=== PATIENT | male | born 1945 | race Caucasian/White ===

== ENCOUNTER 2016-07-11 20:06 | Inpatient (IN) | payer MEDICARE, OTHER ==
--- NOTE | ~2016-07-11 | CN ---
Consultation Report [facility] [address] [place]. [address] NAME: NIRU LUNDBERG JR : 41 STATUS : ADM IN [facility]#: [id number] AGE: 71 ADM/REG DATE : 07/11/16 MR#: [id number] REPORT SERV DATE: 07/17/16 DICTATED BY: VIVIENNE CAMARA DATE: 07/17/16 REPORT STATUS : Draft TRANSCRIBED BY: MODL DATE: 07/17/16 INFECTIOUS DISEASE CONSULT DATE OF CONSULTATION: 07/17/2016 REASON FOR CONSULTATION: Septic left total knee arthroplasty. HISTORY OF PRESENT ILLNESS: This is a 71-year-old man with a past medical history notable for alcoholic cirrhosis, congestive heart failure, coronary artery disease, chronic kidney disease, and COPD. He also underwent bilateral total knee arthroplasties in 2009. The patient tells me that the left knee has hurt ever since then. However, he is a poor historian, otherwise regarding recent development. The chart states that the daughter related a history his admission on 07/11/2016 that he had developed 4-day history of progressive redness, warmth, pain, and swelling of the left lower leg both above and below and including the left knee. He was seen at another hospital and started on clindamycin, but continued to have worsening symptoms and therefore was admitted to [facility] on 07/11/2016. He had a white blood cell count of 9.1 and no fever. An x-ray of the left knee just showed soft tissue swelling. The patient was seen by Dr. Gatica. Arthrocentesis was attempted without success. He was placed on vancomycin, but really did not improve much and underwent a CT-guided aspiration of the joint on 07/15/2016, which showed a white blood cell count of 6980, 77% neutrophils. The patient was therefore taken to the operating room yesterday. I do not have the dictated operative note yet, but his hardware was removed and he had an antibiotic spacer placed. Cultures from both the arthrocentesis and from yesterday's procedure are negative to date. The Gram stains just showed white blood cells, but no organisms. The patient says he actually feels better today. He denies any recent skin or soft tissue infections or other infections such as dental infection or urinary tract infection. PAST MEDICAL HISTORY: As outlined above. With his cirrhosis, he has chronic thrombocytopenia and anemia. He also has a history of depression, anxiety, and coronary artery bypass grafting. ALLERGIES: PENICILLIN, CAUSED AN UNKNOWN REACTION WHEN HE WAS A CHILD. PRESENT MEDICATIONS: In addition to vancomycin include Coreg, Colace, Cardura, Cymbalta, iron, lactulose, multivitamins, OxyContin, Protonix, Demadex, Coumadin. SOCIAL HISTORY: The patient lives alone. He has a pet poodle, occasional scratches, but nothing that got infected appearing. Quit smoking years ago. Quit drinking about a year ago. FAMILY HISTORY: Notable for coronary artery disease and hypertension. REVIEW OF SYSTEMS: Consultation Report [facility] [address] [place]. [address] NAME: NIRU LUNDBERG JR : 41 STATUS : ADM IN [facility]#: [id number] AGE: 71 ADM/REG DATE : 07/11/16 MR#: [id number] REPORT SERV DATE: 07/17/16 DICTATED BY: VIVIENNE CAMARA DATE: 07/17/16 REPORT STATUS : Draft TRANSCRIBED BY: NITISH DATE: 07/17/16 As outlined above. In addition, no chest pain, shortness of breath, nausea, vomiting, diarrhea, genitourinary symptoms. PHYSICAL EXAMINATION: VITAL SIGNS: The patient weighs 109 kg. He is afebrile. Blood pressure 122/56, pulse 92, respiratory rate 14. GENERAL: He is alert, no acute distress. HEAD AND NECK: Shows clear oral cavity. No thrush. LUNGS: Clear to auscultation anteriorly and laterally. CARDIAC: Regular rate and rhythm without murmur, gallop, or rub. ABDOMEN: Slightly distended, very soft, and nontender. No masses appreciated. EXTREMITIES: The left lower extremity is in a postoperative immobilizer. Right lower extremity has a compression stocking. He has a peripheral IV in his arm without phlebitis. LABORATORY STUDIES: White blood cell count 7.0, hemoglobin 8.4, platelets 112, creatinine 1.74, which appears to be about his baseline. Admission liver function tests showed a bilirubin of 3.6, which is relatively unchanged from previous values in the [facility] system. Other liver function tests normal. Admission blood cultures negative. Urine culture negative. New fluid cultures as noted above. Left lower extremity ultrasound was negative. IMPRESSION: Septic left total knee arthroplasty, status post hardware removal. Cultures are negative to date. No real historical clues as to an etiology. This patient also has cirrhosis and chronic kidney disease. PLAN: 1. We will continue empiric vancomycin with dosing per pharmacy. 2. I will place a PICC line tomorrow in anticipation of six weeks of IV antibiotics in a assisted unit. OFELIA/MODShayne Vivienne Camara M.D. / [id number] CC: MD Lisa Baum M.D.
--- NOTE | ~2016-07-11 | DS ---
Discharge Summary [facility] [address] [place]. [address] NAME: NIRU LUNDBERG JR : 41 STATUS : DIS IN PAT#: [id number] AGE: 71 ADM/REG DATE : 07/11/16 MR#: [id number] REPORT SERV DATE: 07/20/16 DICTATED BY: NATY HEBERT DATE: 07/20/16 REPORT STATUS : Draft TRANSCRIBED BY: MODL DATE: 07/20/16 ADMISSION DATE: 07/11/2016 DISCHARGE DATE: 07/20/2016 AD TERMINAL MAKEUP OPERATOR: Brad Henley M.D. METAL EXPEDITER: Robby Barrios M.D. CONSULTING PHYSICIAN: Dr. Gatica for Orthopedics and Dr. Camara for ID. FINAL DIAGNOSES: 1. Left knee septic arthritis, status post surgery. 2. Urinary retention, improved. 3. Status post acute kidney injury on chronic kidney disease 3. 4. Coronary artery disease with history of coronary artery bypass grafting. 5. Atrial fibrillation. 6. Obstructive sleep apnea. 7. Cirrhosis. 8. Anemia, status post 1 unit packed RBC. 9. Chronic thrombocytopenia. 10.Anxiety and depression. 11.Obesity. DIAGNOSTIC EXAMS: Chest x-ray, showing left PICC tip is superimposed over the superior vena cava. Previous right PICC has been removed. No acute abnormality. HOSPITAL COURSE: Please refer to the H and P done by Dr. Mckay dated on 07/11/2016 and the interim discharge summary done by Dr. Joseph dated on 07/17/2016. Since I took care of this patient, the patient is status post left total knee resection and cement block placement for his septic arthritis. Unfortunately, we were not able to isolate any organisms from him. The patient was continued on vancomycin and seems to be tolerating that. We got a rehab facility, [place], and they are willing to take the patient today. The patient will now be discharged there with the above diagnosis. The patient will be on the following medications Coreg 25 mg in the morning and 12.5 mg at bedtime, Cardura 4 mg at night, Cymbalta 30 mg every morning, Colace 100 mg twice a day, iron 300 mg twice a day, lactulose 30 mL twice a day, multivitamin once a day, Protonix 40 mg at bedtime, Flomax 0.4 mg a day, Coumadin per sliding scale. He will be off the Eliquis, vancomycin 1 g IV q.12 hours until 08/25/2016, [place] 7.5/325 one tab p.o. q.6 hours p.r.n. pain. The patient will follow up with the rehab doctor, then follow up with his PCP, Dr. Eriberto Hester, after rehab discharge. Follow up with Ortho per their schedule. The patient will be needing CBC, complete metabolic panel, vancomycin trough weekly and the results should be faxed to Dr. Camara. This has been explained to the patient. I explained also to the daughter, and they understood and agreed with the plan. DICTATED BY: Naty Hebert M.D. Discharge Summary [address] [address] NAME: NIRU LUNDBERG JR : 41 STATUS : DIS IN PAT#: [id number] AGE: 71 ADM/REG DATE : 07/11/16 MR#: [id number] REPORT SERV DATE: 07/20/16 DICTATED BY: NATY HEBERT DATE: 07/20/16 REPORT STATUS : Draft TRANSCRIBED BY: NITISH DATE: 07/20/16 TOMMY/NITISH Naty Hebert M.D. / [id number] CC: Kwaku Trimble M.D.
--- NOTE | ~2016-07-11 | OP ---
Record Of Operation [facility] [address] [place]. [address] NAME: NIRU LUNDBERG JR : 41 STATUS : ADM IN [facility]#: [id number] AGE: 71 ADM/REG DATE : 07/11/16 MR#: [id number] REPORT SERV DATE: 07/17/16 DICTATED BY: FENG ODELL DATE: 07/17/16 REPORT STATUS : Draft TRANSCRIBED BY: MODL DATE: 07/17/16 DATE OF PROCEDURE: 07/16/2016 PREOPERATIVE DIAGNOSIS: Septic left total knee. POSTOPERATIVE DIAGNOSIS: Septic left total knee. PROCEDURE: Left total knee resection, cement block placement. SURGEON: Lisa Odell M.D. SHERIFF'S OFFICER: See chart. DESCRIPTION OF PROCEDURE: The patient was taken to the operating room and placed supine on the table in normal fashion without any incident. General anesthetic was induced per the anesthesiologist. The patient was carefully positioned, padded, prepped, and draped in normal sterile fashion. Left lower extremity was elevated. Tourniquet inflated to 350. Sharp dissection was made through the old incision with electrocautery through the fat. Sharp quad approach was carried out. Purulent appearing fluid was sent for cultures and gram stain. There was abundant hypertrophic synovium debrided with electrocautery and rongeur. The femoral tibial components were removed with flexible osteotome. Cement was meticulously debrided after taking out the polyethylene insert. The patella was removed with an oscillating saw and meticulously debrided with curette. All surfaces were copiously irrigated with pulsatile lavage. We then completely re-draped and re-gowned with a new setup, irrigated with three more liters of pulsatile lavage. The cement block was then fashioned with premixed antibiotic cement with vancomycin added. Placed in a doughy phase, was held under traction. The knee was closed in a layered fashion . The wound was dressed sterilely. The patient was awakened and taken to postanesthesia care without incident. COMPLICATIONS: None. SPECIMENS: Removed components and cultures. ESTIMATED BLOOD LOSS: About 10 mL. WTB/MODL Lisa Odell M.D. / [id number] CC: Record Of Operation [place] [address] [place]. [address] NAME: TOÑO GUILLENNIRU PADILLAWIN : 41 STATUS : ADM IN [facility]#: [id number] AGE: 71 ADM/REG DATE : 07/11/16 MR#: [id number] REPORT SERV DATE: 07/17/16 DICTATED BY: FENG ODELL DATE: 07/17/16 REPORT STATUS : Draft TRANSCRIBED BY: MODL DATE: 07/17/16 Kiersten Joseph MD
--- NOTE | ~2016-07-11 | HP ---
History And Physical [place] [address] [facility] [place]. [address] NAME: NIRU LUNDBERG JR : 43 STATUS : ADM IN [facility]#: [id number] AGE: 71 ADM/REG DATE : 07/11/16 MR#: [id number] REPORT SERV DATE: 07/12/16 DICTATED BY: FENG ODELL DATE: 07/12/16 REPORT STATUS : Draft TRANSCRIBED BY: MODShayne DATE: 07/12/16 DATE OF ADMISSION: 07/11/2016 CHIEF COMPLAINT: Left knee pain. HISTORY: 71-year-old male, 10 years status post bilateral total knee arthroplasty roughly, who has had some pain since a quadriceps tendon rupture over a decade ago. He has had increased pain and swelling over the last week, no known fever, has had some decreased range of motion. He was admitted to the ER last night and placed on IV antibiotics. He and his family says the redness is already improved dramatically. He denies any other infectious symptoms elsewhere. ALLERGIES: PENICILLIN. MEDICATIONS: See chart. PAST MEDICAL HISTORY: Cataracts, hay fever, coronary artery disease, hypertension, CHF, myocardial infarction, history of DVT, GERD, renal calculi, melanoma. PAST SURGICAL HISTORY: CABG x4 in 2000, tonsillectomy and COA in 2005, bilateral knee replaced as noted. SOCIAL HISTORY: Quit tobacco. No alcohol or illicit drug use. FAMILY HISTORY: No anesthetic complications. REVIEW OF SYSTEMS: As above. PHYSICAL EXAMINATION: GENERAL: He is alert and oriented x3, in no apparent distress. HEENT: Atraumatic, normocephalic. CHEST: Symmetric. EXTREMITIES: Both upper extremities right lower extremity without acute trauma. Left lower extremity, he has some mild erythema over the anterior aspect of the knee only. His range of motion is approximately a 10 to about 35 degrees with some pain. Moderate effusion. Skin is intact. Compartment supple. 2+ pulses. NEURO: Sensorimotor without deficit. ASSESSMENT: Left anterior knee cellulitis versus a prepatellar bursitis, apparently improving on antibiotics with questionable deep infection. PLAN: I attempted to aspirate the knee from superolateral portal and got no fluid at all. At this point, with no aspirate and reports of an ultrasound to rule out a DVT that showed minimal fluid in the joint, I am hopeful this is not a deep infection. I do not feel any further imaging is warranted. I would rather see how he responds to a couple of days of IV History And Physical [address] [place] [place]. [address] NAME: NIRU LUNDBERG JR : 43 STATUS : ADM IN PAT#: [id number] AGE: 71 ADM/REG DATE : 07/11/16 MR#: [id number] REPORT SERV DATE: 07/12/16 DICTATED BY: FENG ODELL DATE: 07/12/16 REPORT STATUS : Draft TRANSCRIBED BY: MODL DATE: 07/12/16 antibiotics and may have to do a surgical exploration and/or ultrasound-guided aspirate if he is not improving. WTB/MODL Lisa Odell M.D. / [id number] CC: Kiersten Joseph MD
--- NOTE | ~2016-07-11 | HP ---
History And Physical [place] [id number] [facility] [place]. [address] NAME: NIRU LUNDBERG JR : 41 STATUS : ADM IN [facility]#: [id number] AGE: 71 ADM/REG DATE : 07/11/16 MR#: [id number] REPORT SERV DATE: 07/11/16 DICTATED BY: YENNY HEIN DATE: 07/11/16 REPORT STATUS : Draft TRANSCRIBED BY: MODShayne DATE: 07/11/16 DATE OF ADMISSION: 07/11/2016 POINT OF ENTRY: [facility] Emergency Department. PRIMARY ANTIQUE REPAIRER: Brad Henley M.D. PRIMARY LAND SURVEY TECHNICIAN: Robby Barrios M.D. CHIEF COMPLAINT: Left leg redness and swelling. HISTORY OF PRESENT ILLNESS: Mr. Lundberg is a 71-year-old gentleman with a history of alcoholic cirrhosis, atrial fibrillation on anticoagulation, chronic systolic congestive heart failure as well as coronary artery disease who presents to the emergency department today with a four-day history of left lower extremity redness, swelling, pain as well as warmth. Daughter states that beginning Thursday morning when he awoke, he first noted some redness, warmth, pain, and swelling of his left lower extremity primarily around his distal thigh and proximal calf region as well as around his left knee. They went to [facility] on Thursday where reportedly a lower extremity Doppler was negative for DVT and was placed on oral clindamycin. The patient states compliance with oral clindamycin, however, they feel as if the cellulitic changes in the left lower extremity have worsened somewhat despite being on clindamycin. They do endorse some swelling about the knee joint, however, they state that the left knee is chronically a little swollen status post left total knee by Dr. Gatica about 10 years ago. They deny any fevers, night sweats, chills, chest pain, shortness of breath, palpitations, abdominal pain, nausea, vomiting, diarrhea, constipation, dysuria, lower extremity edema, melena, hematochezia, or hemoptysis. REVIEW OF SYSTEMS: Comprehensive review of system otherwise negative unless listed in history of present illness. Initial evaluation in the emergency department was notable for stable vital signs. Labs notable for a white count that was within normal limits. INR is elevated at 2.3. CRP is also elevated at 59.3. The ER physician consulted with Dr. Gatica regarding workup for possible septic knee arthritis, however, Dr. Gatica recommended just antibiotics overnight, and he is to see patient in the morning and decide on diagnostic arthrocentesis at that time. PREVIOUS MEDICAL HISTORY: 1. Chronic systolic congestive heart failure. 2. Coronary artery disease with coronary artery bypass grafting. 3. Alcoholic cirrhosis. History And Physical [address] [address] NAME: NIRU LUNDBERG JR : 41 STATUS : ADM IN PAT#: [id number] AGE: 71 ADM/REG DATE : 07/11/16 MR#: [id number] REPORT SERV DATE: 07/11/16 DICTATED BY: YENNY HEIN DATE: 07/11/16 REPORT STATUS : Draft TRANSCRIBED BY: NITISH DATE: 07/11/16 4. Pancytopenia. 5. Atrial fibrillation, on Eliquis. 6. Chronic kidney stage 3, baseline creatinine approximately 1.4 to 1.6. 7. History of GI bleed. 8. Obstructive sleep apnea, on CPAP therapy. 9. COPD, not on home oxygen. 10.Depression. 11.Anxiety. 12.Chronic pain. SURGICAL HISTORY: 1. Bilateral total knee replacements. 2. Coronary artery bypass grafting. 3. Tonsillectomy. ALLERGIES: TO PENICILLIN. HOME MEDICATIONS: 1. Tylenol 1300 mg b.i.d. 2. Albuterol two puff inhalation p.r.n. 3. Eliquis 5 mg b.i.d. 4. Carvedilol 12.5 mg at bedtime. 5. Carvedilol 25 mg daily. 6. Clindamycin 450 mg t.i.d. This was started from [facility]. 7. Cardura 4 mg q.p.m. 8. Cymbalta 30 mg daily. 9. Lisinopril 2.5 mg daily. 10.Nitroglycerin 0.4 mg sublingual p.r.n. 11.Percocet 10/325 one tab q.6 hours p.r.n. 12.Protonix 40 mg at bedtime. 13.MiraLAX 17 g daily. 14.Demadex 20 mg daily. 15.Ultram 100 mg at bedtime. 16.Ultram 100 mg q.6 hours p.r.n. 17.Lipitor one tab at bedtime dose unknown. SOCIAL HISTORY: He is a former smoker, quit about 30 years ago. Former alcoholic who quit drinking about a year ago. Denies illicits. FAMILY HISTORY: Mother with coronary disease and hypertension. Father with coronary disease, hypertension. Siblings with history of VTE. LABS AND IMAGIN. White count is 9.1, hemoglobin 9.2, hematocrit is 26.3, platelet count is 93, INR is 2.3. 2. Sodium is 136, potassium 4.6, chloride 104, carbon dioxide 26, BUN 37, creatinine 1.87, glucose is 99, calcium is 8.0, protein 7.0, albumin 3.8, bilirubin is 3.6, ALT is 12, History And Physical [address] [address] NAME: NIRU LUNDBERG JR : 41 STATUS : ADM IN [facility]#: [id number] AGE: 71 ADM/REG DATE : 07/11/16 MR#: [id number] REPORT SERV DATE: 07/11/16 DICTATED BY: YENNY HEIN DATE: 07/11/16 REPORT STATUS : Draft TRANSCRIBED BY: MODL DATE: 07/11/16 AST 20, and alkaline phosphatase is 65. 3. CRP 69.3. 4. Ammonia level 32. 5. Left knee plain film shows no appreciable effusions as per my review. Formal Radiology read will need to be followed up. PHYSICAL EXAMINATION: VITAL SIGNS: Temperature is 98.8 degrees Fahrenheit, pulse is 67, respirations 18, saturating 93% on room air. Blood pressure 124/59. GENERAL: The patient is awake, alert, in no acute distress resting comfortably. He is a well-developed, well-nourished, elderly male. HEENT: Atraumatic and normocephalic. Moist mucous membranes. Pupils are equal, round, reactive to light and accommodation. Extraocular eye movements intact. No scleral icterus. NECK: No jugular venous distention. No carotid bruits. CARDIAC: Regular rate and rhythm. No murmurs, rubs, or gallops. Normal S1, S2. LUNGS: Clear to auscultation bilaterally. No wheezes, rhonchi, or crackles. ABDOMEN: It is obese, soft, nontender, nondistended. Good bowel sounds. No rebound, guarding, or rigidity. EXTREMITIES: Left lower extremity has some area of erythema, warmth as well as tenderness on palpation from approximately 6 to 8 cm proximal to the knee joint extending distally to about 4-5 cm distal to the knee joint. There is an appreciable very mild joint effusion about the knee. SKIN: Warm and dry except for noted above. PSYCH: Affect appropriate. NEURO: Alert, oriented x3. Cranial nerves 2 through 12 grossly intact. Speech is normal. Gait not assessed. ASSESSMENT AND PLAN: Mr. Lundberg is a 71-year-old, gentleman, who presents with a four-day history now of left lower extremity warmth, redness, pain and swelling consistent with left lower extremity cellulitis with concern for possible left knee septic arthritis. PROBLEM LIST: 1. Left lower extremity cellulitis. Failed outpatient therapy. 2. Possible left knee septic arthritis. 3. Alcoholic cirrhosis. 4. Chronic kidney disease stage 3. 5. Chronic systolic congestive heart failure. 6. Confusion. PLAN: 1. Left lower extremity cellulitis. We will place the patient on IV vancomycin and consult Wound Care for assistance. Blood cultures have been obtained. 2. Possible left knee septic arthritis. Dr. Gatica has already been contacted by the ER physician. He is to see patient in the morning. In the meantime, we will continue IV antibiotics. 3. Hepatic cirrhosis. The patient's MELD score currently is 27, however, this is difficult to interpret, as he is also on Eliquis. We will continue his Demadex. His History And Physical [address] [address] NAME: NIRU LUNDBERG JR : 41 STATUS : ADM IN PAT#: [id number] AGE: 71 ADM/REG DATE : 07/11/16 MR#: [id number] REPORT SERV DATE: 07/11/16 DICTATED BY: YENNY HEIN DATE: 07/11/16 REPORT STATUS : Draft TRANSCRIBED BY: MODL DATE: 07/11/16 ammonia level is within normal limits. 4. Chronic kidney stage 3. His creatinine is slightly above the recent baseline. We will hold his lisinopril. We will hold off on any IV fluid hydration at this time. 5. Chronic systolic congestive heart failure. The patient currently appears euvolemic at this time. We will continue monitor, checking BNP as well as chest x-ray. 6. Confusion. Daughter is concerned about some very mild confusion which I am unable to appreciate nor was the ER physician, ammonia levels within normal limits. We will check urine drug screen as well as urinalysis and thyroid function studies. We will place the patient on some low-dose lactulose given ammonia level of 32. This is likely secondary to underlying infection as well as use of pain medications. We will continue to monitor. 7. DVT prophylaxis. The patient is therapeutically anticoagulated at this time. NANCY's and SCDs. 8. Code status. The patient wished to be full code. JCB/MODL Yenny Hein MD / [id number] CC: Eriberto Hester M.D.
--- NOTE | ~2016-07-11 | IDS ---
Interim Discharge Summary [facility] [address] [place]. [address] NAME: NIRU LUNDBERG JR : 41 STATUS : ADM IN [facility]#: [id number] AGE: 71 ADM/REG DATE : 07/11/16 MR#: [id number] REPORT SERV DATE: 07/17/16 DICTATED BY: KIERSTEN ALMONTE DATE: 07/17/16 REPORT STATUS : Draft TRANSCRIBED BY: MODL DATE: 07/17/16 ADMISSION DATE: 07/11/2016 DISCHARGE DATE: DATE OF DISCHARGE: Pending. CONSULTATIONS: 1. Infectious Disease, Dr. Camara. 2. Orthopedic surgeon, Dr. Gatica. INVASIVE PROCEDURES: 1. CT-guided left knee arthrocentesis with approximately 25 mL of clear yellow effusion evacuated. 2. Total knee exploration surgery performed by Dr. Gatica on 07/16/2016. CURRENT DIAGNOSES: 1. Left knee septic arthritis. 2. History of bilateral total knee replacement. 3. Acute kidney injury on chronic kidney disease. 4. Chronic atrial fibrillation. Eliquis (chronic anticoagulation, currently on hold due to recent surgery). 5. History of liver cirrhosis. 6. Pancytopenia. 7. History of obstructive sleep apnea, on CPAP machine at home. 8. History of coronary artery disease with remote history of CABG. 9. Acute urinary retention. Currently with status post Montanez catheter insertion. SURGICAL CULTURE: Pending. ANAEROBIC CULTURE: Also pending. HISTORY OF PRESENT ILLNESS: For detailed HPI, please make reference to Dr. Nicholas Mckay's dictation on 07/11/2016. In brief, this is a 71-year-old gentleman with medical history of alcoholic liver cirrhosis; atrial fibrillation, on chronic anticoagulation at home; chronic systolic heart failure; history of coronary artery disease with remote history of CABG, who presented to the hospital with complaints of four days of left knee redness, swelling and pain, and warmth. In the ER, found to have a temperature of 98.8, pulse of 67 beats per minute, respiratory rate of 18, saturating 93% on room air, blood pressure was 124/59. Physical examination was noted for left lower knee with swelling, redness, and tenderness. An assessment of left knee pain is likely due to septic arthritis was made in the ER. The patient was admitted to the Hospitalist Service. HOSPITAL COURSE: 1. Left septic knee. Blood cultures were obtained. The patient was started on empiric broad-spectrum antibiotics with IV vancomycin. An attempt was made by the orthopedic surgeon to obtain fluid at the bedside and attempt was made by the orthopedic surgeon Interim Discharge Summary [facility] [address] [place]. [address] NAME: NIRU LUNDBERG JR : 41 STATUS : ADM IN PAT#: [id number] AGE: 71 ADM/REG DATE : 07/11/16 MR#: [id number] REPORT SERV DATE: 07/17/16 DICTATED BY: KIERSTEN ALMONTE DATE: 07/17/16 REPORT STATUS : Draft TRANSCRIBED BY: MODShayne DATE: 07/17/16 to perform a bedside arthrocentesis, but had a dry tap. The patient underwent a CT- guided arthrocentesis that yielded clear yellowish fluid. Gram stain noted to have 6900 nucleated white blood cell concerning for possible septic arthritis. The patient subsequently underwent knee exploration surgery for removal of prostatic knee. Infectious Disease was consulted, recommended IV antibiotics for six weeks. At the time of dictation of this discharge summary, the patient was scheduled to have a PICC line placed and cultures are pending. manager client service is currently assisting with placement of patient to SNF for IV antibiotics and acute rehab. The patient will likely go to [facility]. 2. Acute kidney injury on chronic kidney disease. The patient's creatinine on presentation was 1.87. The patient's creatinine trended back to 1.4. At this point, I am holding up the patient's diuretic torsemide. The patient's vanc trough level will be checked overnight and we will continue to monitor the patient's creatinine closely. 3. Chronic atrial fibrillation. The patient's Eliquis is currently on hold given recent invasive and surgical procedures. When appropriate per Orthopedics, the patient will restart Eliquis. The patient's heart rate has been within control. The patient is currently on carvedilol for rate control. 4. Acute urinary tract retention. The patient was noted to have significant urinary retention postop. A bladder scan was done today that shows 450 mL of urine in the bladder. A Montanez catheter is scheduled to be inserted for symptomatic relief. The patient's takes doxycycline. 5. Pancytopenia. The patient's white cell count, platelets, and hemoglobin have remained fairly stable throughout the course of this admission. 6. History of liver cirrhosis without evidence of acute decompensated liver disease. 7. Obstructive sleep apnea, on CPAP at home, currently stable. Discharge date pending at the time of this dictation. IOO/MODL Kiersten Almonte MD / [id number] CC: Kiersten Almonte MD
[2016-07-11 19:33] LABS: BASOPHILS 0.1 %; BASOPHILS ABSOLUTE 0.01 10/3/uL (0.0-0.16); EOSINOPHILS 0.4 %; EOSINOPHILS ABSOLUTE 0.04 10/3/uL (0.0-0.53); ER CBC TAT 0 Hrs 08 Mins; HEMATOCRIT 26.3 % (40.0-51.0); HEMOGLOBIN 9.2 g/dL (13.6-17.8); IMMATURE GRANULOCYTES 1.4 %; IMMATURE GRANULOCYTES ABSOLUTE 0.13 10/3/uL (0.0-0.11); LYMPHOCYTES 7.4 %; LYMPHOCYTES ABSOLUTE 0.67 10/3/uL (0.67-4.30); MANUAL DIFF NO %; MEAN CORPUSCULAR HEMOGLOB 32.3 pg (26.0-34.0); MEAN CORPUSCULAR VOLUME 92.3 fL (80-100); MEAN PLATELET VOLUME 11.4 fL (9.2-13.0); MONOCYTES 19.4 %; MONOCYTES ABSOLUTE 1.76 10/3/uL (0.21-1.20); NEUTROPHILS 71.3 %; NEUTROPHILS ABSOLUTE 6.44 10/3/uL (2.02-8.40); PLATELET COUNT 93 10/3/uL (150-400); RBC DISTRIBUTION WIDTH 17.1 % (12.0-16.0); RED CELL COUNT 2.85 10/6/uL (4.7-6.1); WHITE BLOOD CELLS 9.1 10/3/uL (4.5-10.5)
[2016-07-11 19:37] LABS: INTERNATIONAL NORMAL RATI 2.3 UNITS (-); PARTIAL THROMBO TIME 55.9 SEC (22.5-37.2); PROTIME (NOT ORD) 25.1 SEC (12.0-14.5)
[2016-07-11 19:45] LABS: C-REACTIVE PROTEIN 59.3 MG/L (<8.0); CHLORIDE, SERUM 104 MMOL/L (96-112); CO2 (CARBON DIOXIDE) 26 MMOL/L (24-34); CREATININE 1.87 MG/DL (0.70-1.30); GFR AFRICAN AMERICAN 40 ML/MIN (>=60); GFR NON AFRICAN AMERICAN 35 ML/MIN (>=60); GLUCOSE, SERUM 99 MG/DL (60-99); POTASSIUM, SERUM 4.6 MMOL/L (3.5-5.3); SGOT(AST) 20 U/L (5-40); SGPT(ALT) 12 U/L (5-65); SODIUM, SERUM 136 MMOL/L (135-148)
[2016-07-11 19:48] LABS: A/G RATIO 1.2 (0.7-1.9); ALBUMIN 3.8 G/DL (3.5-5.0); ALKALINE PHOSPHATASE 65 U/L (45-117); BUN (BLOOD UREA NITROGEN) 37 MG/DL (6-23); GLOBULIN 3.2 G/DL (2.5-4.1); TOTAL BILIRUBIN 3.6 MG/DL (0-1.2)
[~2016-07-11 20:06] MED LIST: ADVAIR INH; ASAB PO; ASAEC PO; CARDU4 PO; CARDURA8 MG PO; COREG12 PO; COREG25 PO; CYMBALTA30 PO; DEMA20 PO; DOLOPHINE5 MG PO; EFFEX37.5 PO; ELIQUIS 5 MG TAB5 MG PO; ENDOCET1 TAB PO; FOLIC ACID PO; HALF81 PO; HYDROCHLOROT25 MG PO; LISINOPRIL40 MG PO; LORTAB 5 PO; METHATAB5B PO; MIRALAXPKT PO; MOBIC15 MG PO; NITROSTAT0.4 MG SL; PR25 PO; PRASTERONE PO; PRAVACHOL40 MG PO; PRILO PO; PRIN2.5 PO; PROAIR HFA INH; PROTONIX PO; SENTAB PO; SPIRO25 PO; TRAZ100 PO; TYLENOL ARTH650 MG PO; ULTRACET PO; ULTRAM50 PO; ZANTAC300 MG PO
[2016-07-11 20:43] LABS: SED RATE 28 MM/HR (0-15)
[2016-07-11] MEDS ORDERED: CLINDA150 PO (21:28)
[2016-07-11] MEDS ORDERED: COREG25 PO (21:29)
[2016-07-11] MEDS ORDERED: 8 HOUR650 MG PO (21:29)
[2016-07-11] MEDS ORDERED: PERCOCET 10/3251 TAB PO (21:29)
[2016-07-11] MEDS ORDERED: CARDU4 PO (21:30)
[2016-07-11] MEDS ORDERED: COREG12 PO (21:30)
[2016-07-11] MEDS ORDERED: CYMBALTA30 PO (21:30)
[2016-07-11] MEDS ORDERED: LIPITOR40 PO (21:31)
[2016-07-11] MEDS ORDERED: MIRALAX POWDER1 PKT PO (21:31)
[2016-07-11] MEDS ORDERED: NITROSTAT0.4 MG SL (21:31)
[2016-07-11] MEDS ORDERED: PRIN2.5 PO (21:31)
[2016-07-11] MEDS ORDERED: PROTONIX PO (21:32)
[2016-07-11] MEDS ORDERED: ULTRAM50 PO ×2 (21:33)
[2016-07-11] MEDS ORDERED: ELIQUIS 5 MG TAB5 MG PO (21:34)
[2016-07-11] MEDS ORDERED: PROAIR HFA INH (21:35)
[2016-07-11] MEDS ORDERED: DEMA20 PO (21:35)
[2016-07-11 23:38] LABS: PROCALCITONIN <0.05 ng/mL (<0.5)
[2016-07-12 06:50] LABS: ASCORBIC ACID (UR NOT ORDER) NEG (NEG); BILIRUBIN, URINE NEGATIVE (NEG); KETONE, URINE NEGATIVE (NEG); LEUKOCYTE ESTERASE(NOT OR MOD (NEG); WBC (NOT ORDERED) (RFLEX) 36 (0-5)
[2016-07-12 07:04] LABS: AMPHETAMINES (NOT ORD) NEG (NEG); BARBITURATES (NOT ORDERED NEG (NEG); BENZODIAZEPINES (NOT ORD) NEG (NEG); CANNABINOIDS (THC) NEG (NEG); COCAINE (NOT ORDERED) NEG (NEG); OPIATES NEG (NEG); PHENCYCLIDINE(PCP) NEG (NEG); TRICYCLICS NEG (NEG)
[2016-07-12 07:05] LABS: OSMOLALITY, URINE 442 MOSM/KG (50-1200)
[2016-07-12 07:19] LABS: SODIUM, URINE 23 MEQ/L
[2016-07-12 07:47] LABS: HEMOGLOBIN 9.4 g/dL (13.6-17.8); MEAN CORPUS HGB CONC 33.6 g/dL (32.0-36.0); MEAN CORPUSCULAR HEMOGLOB 31.6 pg (26.0-34.0); MEAN CORPUSCULAR VOLUME 94.3 fL (80-100); MEAN PLATELET VOLUME 12.3 fL (9.2-13.0); PLATELET COUNT 90 10/3/uL (150-400); RBC DISTRIBUTION WIDTH 16.9 % (12.0-16.0); RED CELL COUNT 2.97 10/6/uL (4.7-6.1); WHITE BLOOD CELLS 7.8 10/3/uL (4.5-10.5)
[2016-07-12 07:51] LABS: MANUAL DIFF YES %
[2016-07-12 07:52] LABS: INTERNATIONAL NORMAL RATI 1.9 UNITS (-); PROTIME (NOT ORD) 21.6 SEC (12.0-14.5)
[2016-07-12 07:53] LABS: PARTIAL THROMBO TIME 52.3 SEC (22.5-37.2)
[2016-07-12 08:11] LABS: ANISOCYTOSIS 1+ (5-10/OIF) (0-5/OIF); BAND NEUTROPHILS 1 %; EOSINOPHILS 2 %; EOSINOPHILS ABSOLUTE (CALC) 0.16 10/3/uL (0.0-0.53); LYMPHOCYTES 4 %; LYMPHOCYTES ABSOLUTE (CALC) 0.31 10/3/uL (0.67-4.30); MONOCYTES 10 %; MONOCYTES ABSOLUTE (CALC) 0.78 10/3/uL (0.21-1.20); NEUTROPHILS ABSOLUTE (CALC) 6.55 10/3/uL (2.02-8.40); SEGMENTED NEUTROPHIL (0) 83 %; TOTAL NUCLEATED CELLS 100
[2016-07-12 08:12] LABS: ACANTHOCYTES OCC (0-2/OIF); PLATELET ESTIMATE DEC (ADEQUATE); TEARDROP SHAPED RBCS OCC (0-2/OIF)
[2016-07-12 08:14] LABS: ALBUMIN 3.7 G/DL (3.5-5.0); BUN (BLOOD UREA NITROGEN) 32 MG/DL (6-23); CALCIUM, SERUM 8.5 MG/DL (8.5-10.4); CHLORIDE, SERUM 106 MMOL/L (96-112); CO2 (CARBON DIOXIDE) 25 MMOL/L (24-34); CREATININE 1.57 MG/DL (0.70-1.30); FREE T4 1.58 NG/DL (0.76-1.46); GFR AFRICAN AMERICAN 50 ML/MIN (>=60); GFR NON AFRICAN AMERICAN 43 ML/MIN (>=60); GLUCOSE, SERUM 98 MG/DL (60-99); POTASSIUM, SERUM 4.4 MMOL/L (3.5-5.3); SODIUM, SERUM 139 MMOL/L (135-148)
[2016-07-13 06:12] LABS: BASOPHILS 0.3 %; BASOPHILS ABSOLUTE 0.03 10/3/uL (0.0-0.16); EOSINOPHILS 0.9 %; EOSINOPHILS ABSOLUTE 0.09 10/3/uL (0.0-0.53); HEMATOCRIT 27.1 % (40.0-51.0); HEMOGLOBIN 9.3 g/dL (13.6-17.8); IMMATURE GRANULOCYTES 1.8 %; IMMATURE GRANULOCYTES ABSOLUTE 0.18 10/3/uL (0.0-0.11); LYMPHOCYTES 10.3 %; LYMPHOCYTES ABSOLUTE 1.03 10/3/uL (0.67-4.30); MEAN CORPUS HGB CONC 34.3 g/dL (32.0-36.0); MEAN CORPUSCULAR HEMOGLOB 31.6 pg (26.0-34.0); MEAN CORPUSCULAR VOLUME 92.2 fL (80-100); MEAN PLATELET VOLUME 12.4 fL (9.2-13.0); MONOCYTES 19.8 %; MONOCYTES ABSOLUTE 1.98 10/3/uL (0.21-1.20); NEUTROPHILS 66.9 %; NEUTROPHILS ABSOLUTE 6.71 10/3/uL (2.02-8.40); PLATELET COUNT 101 10/3/uL (150-400); RED CELL COUNT 2.94 10/6/uL (4.7-6.1)
[2016-07-13 06:14] LABS: MANUAL DIFF NO %
[2016-07-13 06:20] LABS: ALBUMIN 3.5 G/DL (3.5-5.0); BUN (BLOOD UREA NITROGEN) 33 MG/DL (6-23); CALCIUM, SERUM 8.7 MG/DL (8.5-10.4); CHLORIDE, SERUM 106 MMOL/L (96-112); CO2 (CARBON DIOXIDE) 24 MMOL/L (24-34); CREATININE 1.42 MG/DL (0.70-1.30); GFR AFRICAN AMERICAN 56 ML/MIN (>=60); GFR NON AFRICAN AMERICAN 49 ML/MIN (>=60); GLUCOSE, SERUM 113 MG/DL (60-99); PHOSPHORUS, SERUM 3.1 MG/DL (2.5-4.5); POTASSIUM, SERUM 4.3 MMOL/L (3.5-5.3); SODIUM, SERUM 138 MMOL/L (135-148)
[2016-07-14 04:57] LABS: BASOPHILS 0.4 %; BASOPHILS ABSOLUTE 0.04 10/3/uL (0.0-0.16); EOSINOPHILS 0.6 %; EOSINOPHILS ABSOLUTE 0.06 10/3/uL (0.0-0.53); HEMATOCRIT 28.1 % (40.0-51.0); HEMOGLOBIN 9.5 g/dL (13.6-17.8); IMMATURE GRANULOCYTES 0.8 %; IMMATURE GRANULOCYTES ABSOLUTE 0.08 10/3/uL (0.0-0.11); LYMPHOCYTES 8.1 %; LYMPHOCYTES ABSOLUTE 0.82 10/3/uL (0.67-4.30); MANUAL DIFF NO %; MEAN CORPUS HGB CONC 33.8 g/dL (32.0-36.0); MEAN CORPUSCULAR HEMOGLOB 31.9 pg (26.0-34.0); MEAN CORPUSCULAR VOLUME 94.3 fL (80-100); MEAN PLATELET VOLUME 11.8 fL (9.2-13.0); MONOCYTES ABSOLUTE 1.83 10/3/uL (0.21-1.20); NEUTROPHILS 72.1 %; NEUTROPHILS ABSOLUTE 7.31 10/3/uL (2.02-8.40); PLATELET COUNT 111 10/3/uL (150-400); RBC DISTRIBUTION WIDTH 16.6 % (12.0-16.0); RED CELL COUNT 2.98 10/6/uL (4.7-6.1); WHITE BLOOD CELLS 10.1 10/3/uL (4.5-10.5)
[2016-07-14 05:11] LABS: BUN (BLOOD UREA NITROGEN) 33 MG/DL (6-23); CALCIUM, SERUM 8.4 MG/DL (8.5-10.4); CHLORIDE, SERUM 108 MMOL/L (96-112); CO2 (CARBON DIOXIDE) 25 MMOL/L (24-34); CREATININE 1.53 MG/DL (0.70-1.30); GFR AFRICAN AMERICAN 52 ML/MIN (>=60); GFR NON AFRICAN AMERICAN 44 ML/MIN (>=60); GLUCOSE, SERUM 106 MG/DL (60-99); POTASSIUM, SERUM 4.1 MMOL/L (3.5-5.3); SODIUM, SERUM 136 MMOL/L (135-148)
[2016-07-14 05:34] LABS: SED RATE 65 MM/HR (0-15)
[2016-07-14 06:10] LABS: PROCALCITONIN 0.06 ng/mL (<0.5)
[2016-07-15 05:38] LABS: BASOPHILS 0.3 %; BASOPHILS ABSOLUTE 0.03 10/3/uL (0.0-0.16); EOSINOPHILS 0.8 %; EOSINOPHILS ABSOLUTE 0.08 10/3/uL (0.0-0.53); HEMATOCRIT 28.1 % (40.0-51.0); HEMOGLOBIN 9.6 g/dL (13.6-17.8); LYMPHOCYTES 8.3 %; MEAN CORPUS HGB CONC 34.2 g/dL (32.0-36.0); MEAN CORPUSCULAR HEMOGLOB 31.9 pg (26.0-34.0); MEAN CORPUSCULAR VOLUME 93.4 fL (80-100); MEAN PLATELET VOLUME 11.2 fL (9.2-13.0); MONOCYTES 14.5 %; MONOCYTES ABSOLUTE 1.39 10/3/uL (0.21-1.20); NEUTROPHILS 75.1 %; PLATELET COUNT 106 10/3/uL (150-400); RBC DISTRIBUTION WIDTH 16.4 % (12.0-16.0); RED CELL COUNT 3.01 10/6/uL (4.7-6.1); WHITE BLOOD CELLS 9.6 10/3/uL (4.5-10.5)
[2016-07-15 05:39] LABS: MANUAL DIFF NO %
[2016-07-15 05:44] LABS: BUN (BLOOD UREA NITROGEN) 36 MG/DL (6-23); CALCIUM, SERUM 8.5 MG/DL (8.5-10.4); CHLORIDE, SERUM 103 MMOL/L (96-112); CO2 (CARBON DIOXIDE) 27 MMOL/L (24-34); CREATININE 1.54 MG/DL (0.70-1.30); GFR AFRICAN AMERICAN 51 ML/MIN (>=60); GFR NON AFRICAN AMERICAN 44 ML/MIN (>=60); GLUCOSE, SERUM 109 MG/DL (60-99); PHOSPHORUS, SERUM 3.5 MG/DL (2.5-4.5); SODIUM, SERUM 138 MMOL/L (135-148)
[2016-07-15 17:21] LABS: BD FL LYMPH (NOT ORD) 1 %; BD FL SOURCE (NOT ORD) L KNEE; BF BASO (NOT OF) 0 %; BF LARGE MONONUCLEAR 22 %; BF TOTAL CELL CT (NOT ORD 6980 /MM3; BODY FLUID EOS (NOT ORD) 0 %; BODY FLUID RBC (NOT ORD) 3000 /MM3; BODY FLUID SEG (NOT ORD) 77 %
[2016-07-16 07:24] LABS: BASOPHILS 0.2 %; BASOPHILS ABSOLUTE 0.02 10/3/uL (0.0-0.16); EOSINOPHILS 0.1 %; EOSINOPHILS ABSOLUTE 0.01 10/3/uL (0.0-0.53); HEMATOCRIT 27.6 % (40.0-51.0); HEMOGLOBIN 9.5 g/dL (13.6-17.8); IMMATURE GRANULOCYTES 1.9 %; IMMATURE GRANULOCYTES ABSOLUTE 0.16 10/3/uL (0.0-0.11); LYMPHOCYTES 8.5 %; MEAN CORPUS HGB CONC 34.4 g/dL (32.0-36.0); MEAN CORPUSCULAR VOLUME 92.9 fL (80-100); MEAN PLATELET VOLUME 10.4 fL (9.2-13.0); MONOCYTES 10.1 %; MONOCYTES ABSOLUTE 0.84 10/3/uL (0.21-1.20); NEUTROPHILS 79.2 %; NEUTROPHILS ABSOLUTE 6.55 10/3/uL (2.02-8.40); PLATELET COUNT 110 10/3/uL (150-400); RBC DISTRIBUTION WIDTH 16.3 % (12.0-16.0); RED CELL COUNT 2.97 10/6/uL (4.7-6.1); WHITE BLOOD CELLS 8.3 10/3/uL (4.5-10.5)
[2016-07-16 07:25] LABS: MANUAL DIFF NO %
[2016-07-16 07:36] LABS: BUN (BLOOD UREA NITROGEN) 35 MG/DL (6-23); CALCIUM, SERUM 8.5 MG/DL (8.5-10.4); CHLORIDE, SERUM 103 MMOL/L (96-112); CO2 (CARBON DIOXIDE) 29 MMOL/L (24-34); CREATININE 1.32 MG/DL (0.70-1.30); GFR AFRICAN AMERICAN 62 ML/MIN (>=60); GFR NON AFRICAN AMERICAN 53 ML/MIN (>=60); PHOSPHORUS, SERUM 3.2 MG/DL (2.5-4.5); POTASSIUM, SERUM 4.2 MMOL/L (3.5-5.3); SODIUM, SERUM 139 MMOL/L (135-148)
[2016-07-16 07:37] LABS: GLUCOSE, SERUM 134 MG/DL (60-99)
[2016-07-17 05:10] LABS: BASOPHILS 0.4 %; BASOPHILS ABSOLUTE 0.03 10/3/uL (0.0-0.16); EOSINOPHILS 0.7 %; EOSINOPHILS ABSOLUTE 0.05 10/3/uL (0.0-0.53); HEMATOCRIT 25.3 % (40.0-51.0); HEMOGLOBIN 8.4 g/dL (13.6-17.8); IMMATURE GRANULOCYTES 2.7 %; IMMATURE GRANULOCYTES ABSOLUTE 0.19 10/3/uL (0.0-0.11); LYMPHOCYTES 8.8 %; LYMPHOCYTES ABSOLUTE 0.62 10/3/uL (0.67-4.30); MEAN CORPUS HGB CONC 33.2 g/dL (32.0-36.0); MEAN CORPUSCULAR HEMOGLOB 31.5 pg (26.0-34.0); MEAN CORPUSCULAR VOLUME 94.8 fL (80-100); MEAN PLATELET VOLUME 11.2 fL (9.2-13.0); MONOCYTES 12.7 %; MONOCYTES ABSOLUTE 0.89 10/3/uL (0.21-1.20); NEUTROPHILS 74.7 %; NEUTROPHILS ABSOLUTE 5.23 10/3/uL (2.02-8.40); PLATELET COUNT 112 10/3/uL (150-400); RED CELL COUNT 2.67 10/6/uL (4.7-6.1)
[2016-07-17 05:11] LABS: INTERNATIONAL NORMAL RATI 1.5 UNITS (-)
[2016-07-17 05:12] LABS: MANUAL DIFF NO %
[2016-07-17 05:13] LABS: PROTIME (NOT ORD) 18.3 SEC (12.0-14.5)
[2016-07-17 05:27] LABS: CALCIUM, SERUM 8.4 MG/DL (8.5-10.4); CHLORIDE, SERUM 105 MMOL/L (96-112); CO2 (CARBON DIOXIDE) 27 MMOL/L (24-34); CREATININE 1.74 MG/DL (0.70-1.30); GFR AFRICAN AMERICAN 44 ML/MIN (>=60); GFR NON AFRICAN AMERICAN 38 ML/MIN (>=60); GLUCOSE, SERUM 155 MG/DL (60-99); POTASSIUM, SERUM 4.3 MMOL/L (3.5-5.3); SODIUM, SERUM 139 MMOL/L (135-148)
[2016-07-17 05:29] LABS: BUN (BLOOD UREA NITROGEN) 41 MG/DL (6-23); PHOSPHORUS, SERUM 4.8 MG/DL (2.5-4.5)
[2016-07-17 18:27] LABS: WBC (NOT ORDERED) (RFLEX) 0 (0-5)
[2016-07-17 19:26] LABS: ASCORBIC ACID (UR NOT ORDER) NEG (NEG); BILIRUBIN, URINE NEGATIVE (NEG); KETONE, URINE NEGATIVE (NEG); LEUKOCYTE ESTERASE(NOT OR NEG (NEG)
[2016-07-18 04:14] LABS: HEMATOCRIT 24.4 % (40.0-51.0)
[2016-07-18 04:17] LABS: BASOPHILS 0.2 %; BASOPHILS ABSOLUTE 0.02 10/3/uL (0.0-0.16); EOSINOPHILS 0.8 %; EOSINOPHILS ABSOLUTE 0.08 10/3/uL (0.0-0.53); HEMATOCRIT 24.1 % (40.0-51.0); IMMATURE GRANULOCYTES 2.4 %; IMMATURE GRANULOCYTES ABSOLUTE 0.23 10/3/uL (0.0-0.11); LYMPHOCYTES 8.4 %; LYMPHOCYTES ABSOLUTE 0.81 10/3/uL (0.67-4.30); MEAN CORPUS HGB CONC 33.2 g/dL (32.0-36.0); MEAN CORPUSCULAR HEMOGLOB 31.5 pg (26.0-34.0); MEAN CORPUSCULAR VOLUME 94.9 fL (80-100); MEAN PLATELET VOLUME 11.3 fL (9.2-13.0); MONOCYTES ABSOLUTE 1.06 10/3/uL (0.21-1.20); NEUTROPHILS 77.2 %; NEUTROPHILS ABSOLUTE 7.41 10/3/uL (2.02-8.40); PLATELET COUNT 126 10/3/uL (150-400); RBC DISTRIBUTION WIDTH 16.3 % (12.0-16.0); RED CELL COUNT 2.54 10/6/uL (4.7-6.1); WHITE BLOOD CELLS 9.6 10/3/uL (4.5-10.5)
[2016-07-18 04:19] LABS: MANUAL DIFF NO %
[2016-07-18 04:20] LABS: INTERNATIONAL NORMAL RATI 1.5 UNITS (-); PROTIME (NOT ORD) 17.6 SEC (12.0-14.5)
[2016-07-18 04:28] LABS: BUN (BLOOD UREA NITROGEN) 43 MG/DL (6-23); CALCIUM, SERUM 8.1 MG/DL (8.5-10.4); CHLORIDE, SERUM 101 MMOL/L (96-112); CO2 (CARBON DIOXIDE) 30 MMOL/L (24-34); CREATININE 1.91 MG/DL (0.70-1.30); GFR AFRICAN AMERICAN 39 ML/MIN (>=60); GFR NON AFRICAN AMERICAN 34 ML/MIN (>=60); PHOSPHORUS, SERUM 3.9 MG/DL (2.5-4.5); POTASSIUM, SERUM 4.6 MMOL/L (3.5-5.3); SODIUM, SERUM 136 MMOL/L (135-148)
[2016-07-18 04:31] LABS: GLUCOSE, SERUM 120 MG/DL (60-99)
[2016-07-19 04:44] LABS: BASOPHILS 0.3 %; BASOPHILS ABSOLUTE 0.02 10/3/uL (0.0-0.16); EOSINOPHILS 1.6 %; HEMATOCRIT 24.4 % (40.0-51.0); HEMOGLOBIN 8.2 g/dL (13.6-17.8); IMMATURE GRANULOCYTES ABSOLUTE 0.19 10/3/uL (0.0-0.11); LYMPHOCYTES 9.4 %; MEAN CORPUS HGB CONC 33.6 g/dL (32.0-36.0); MEAN CORPUSCULAR HEMOGLOB 31.7 pg (26.0-34.0); MEAN CORPUSCULAR VOLUME 94.2 fL (80-100); NEUTROPHILS 74.7 %; NEUTROPHILS ABSOLUTE 4.78 10/3/uL (2.02-8.40); PLATELET COUNT 117 10/3/uL (150-400); RBC DISTRIBUTION WIDTH 16.1 % (12.0-16.0); RED CELL COUNT 2.59 10/6/uL (4.7-6.1); WHITE BLOOD CELLS 6.4 10/3/uL (4.5-10.5)
[2016-07-19 04:46] LABS: MANUAL DIFF NO %
[2016-07-19 04:53] LABS: INTERNATIONAL NORMAL RATI 1.5 UNITS (-)
[2016-07-19 05:04] LABS: BUN (BLOOD UREA NITROGEN) 43 MG/DL (6-23); CALCIUM, SERUM 7.7 MG/DL (8.5-10.4); CHLORIDE, SERUM 105 MMOL/L (96-112); CO2 (CARBON DIOXIDE) 27 MMOL/L (24-34); GFR AFRICAN AMERICAN 58 ML/MIN (>=60); GFR NON AFRICAN AMERICAN 50 ML/MIN (>=60); GLUCOSE, SERUM 109 MG/DL (60-99); POTASSIUM, SERUM 4.5 MMOL/L (3.5-5.3); SODIUM, SERUM 138 MMOL/L (135-148)
[2016-07-19 05:06] LABS: CREATININE 1.39 MG/DL (0.70-1.30)
[2016-07-20 04:22] LABS: BASOPHILS 0.7 %; BASOPHILS ABSOLUTE 0.04 10/3/uL (0.0-0.16); EOSINOPHILS 1.3 %; EOSINOPHILS ABSOLUTE 0.07 10/3/uL (0.0-0.53); HEMATOCRIT 24.5 % (40.0-51.0); HEMOGLOBIN 8.3 g/dL (13.6-17.8); IMMATURE GRANULOCYTES 3.3 %; IMMATURE GRANULOCYTES ABSOLUTE 0.18 10/3/uL (0.0-0.11); LYMPHOCYTES 10.3 %; LYMPHOCYTES ABSOLUTE 0.56 10/3/uL (0.67-4.30); MEAN CORPUS HGB CONC 33.9 g/dL (32.0-36.0); MEAN CORPUSCULAR HEMOGLOB 31.9 pg (26.0-34.0); MEAN CORPUSCULAR VOLUME 94.2 fL (80-100); MEAN PLATELET VOLUME 11.3 fL (9.2-13.0); MONOCYTES 15.9 %; MONOCYTES ABSOLUTE 0.86 10/3/uL (0.21-1.20); NEUTROPHILS 68.5 %; NEUTROPHILS ABSOLUTE 3.71 10/3/uL (2.02-8.40); PLATELET COUNT 132 10/3/uL (150-400); RBC DISTRIBUTION WIDTH 15.9 % (12.0-16.0); WHITE BLOOD CELLS 5.4 10/3/uL (4.5-10.5)
[2016-07-20 04:23] LABS: MANUAL DIFF NO %
[2016-07-20 04:30] LABS: INTERNATIONAL NORMAL RATI 1.5 UNITS (-); PROTIME (NOT ORD) 18.4 SEC (12.0-14.5)
[2016-07-20 04:33] LABS: CALCIUM, SERUM 8.1 MG/DL (8.5-10.4); CHLORIDE, SERUM 105 MMOL/L (96-112); CO2 (CARBON DIOXIDE) 26 MMOL/L (24-34); CREATININE 1.15 MG/DL (0.70-1.30); GFR AFRICAN AMERICAN 73 ML/MIN (>=60); GFR NON AFRICAN AMERICAN 63 ML/MIN (>=60); GLUCOSE, SERUM 106 MG/DL (60-99); POTASSIUM, SERUM 4.5 MMOL/L (3.5-5.3); SODIUM, SERUM 138 MMOL/L (135-148)
[2016-07-20 04:36] LABS: BUN (BLOOD UREA NITROGEN) 32 MG/DL (6-23)
[2016-09-23] MEDS ORDERED: FOLIC ACID800 MCG PO (12:42)
[2016-09-23] MEDS ORDERED: MULTIPLE VIT PO (12:43)
[2016-09-23] MEDS ORDERED: STERAPRED DS10 MG (12:45)
[2016-09-23] MEDS ORDERED: FLOMAX4 PO (12:48)
[2016-09-23] MEDS ORDERED: SPIRO25 PO (12:48)
[2016-09-23] MEDS ORDERED: BUM1 PO (12:49)
[2016-09-23] MEDS ORDERED: COREG25 PO (12:50)
[2016-09-23] MEDS ORDERED: FERROUS SULF325 M1 PO (12:50)
[2016-09-23] MEDS ORDERED: CONSTULOSE PO (12:52)
[2016-09-23] MEDS ORDERED: KENALOG EX (12:54)
[2016-09-23] MEDS ORDERED: NYS500UDL PO (12:56)
== END 2016-07-20 16:45 | DRG 464 ==
LOC: ER 20:06 → 7NO 22:19 → 3SO 07-16 21:53
PROVIDERS: Emergency Medicine; Hospitalist; Internal Medicine; Specialist
PROC: 0SPD0JZ Removal of Synthetic Substitute from Left Knee Joint, Open Approach (ICD-10-PCS; principal; 2016-07-11)
PROC: 0SHD08Z Insertion of Spacer into Left Knee Joint, Open Approach (ICD-10-PCS; 2016-07-11)
PROC: 0SBD3ZX Excision of Left Knee Joint, Percutaneous Approach, Diagnostic (ICD-10-PCS; 2016-07-15)
PROC: 02HV33Z Insertion of Infusion Device into Superior Vena Cava, Percutaneous Approach (ICD-10-PCS; 2016-07-18)
PROC: 4A02X4A Measurement of Cardiac Electrical Activity, Guidance, External Approach (ICD-10-PCS; 2016-07-18)
PROC: 30233N1 Transfusion of Nonautologous Red Blood Cells into Peripheral Vein, Percutaneous Approach (ICD-10-PCS; 2016-07-18)
PROC: 02HV33Z Insertion of Infusion Device into Superior Vena Cava, Percutaneous Approach (ICD-10-PCS; 2016-07-20)
PROC: 4A02X4A Measurement of Cardiac Electrical Activity, Guidance, External Approach (ICD-10-PCS; 2016-07-20)
DX: M00.9 Pyogenic arthritis, unspecified (principal); L03.116 Cellulitis of left lower limb; N17.9 Acute kidney failure, unspecified; I50.22 Chronic systolic (congestive) heart failure; K70.30 Alcoholic cirrhosis of liver without ascites; I13.0 Hypertensive heart and chronic kidney disease with heart failure and stage 1 through stage 4 chronic kidney disease, or unspecified chronic kidney disease; J44.9 Chronic obstructive pulmonary disease, unspecified; D62 Acute posthemorrhagic anemia; I25.10 Atherosclerotic heart disease of native coronary artery without angina pectoris; N18.3 Chronic kidney disease, stage 3 (moderate); F41.9 Anxiety disorder, unspecified; F32.9 Major depressive disorder, single episode, unspecified; Z96.653 Presence of artificial knee joint, bilateral; I25.2 Old myocardial infarction; Z86.718 Personal history of other venous thrombosis and embolism; Z95.1 Presence of aortocoronary bypass graft; Z87.891 Personal history of nicotine dependence; Z88.0 Allergy status to penicillin; Z79.01 Long term (current) use of anticoagulants
CPT/HCPCS: 10030; 36415; 36569; 71010; 73562-LT; 80048; 80053; 80069; 80202; 80305; 81001; 82140; 82570; 83735; 83880; 83935; 84100; 84145; 84300; 84439; 84443; 85014; 85018; 85025; 85610; 85652; 85730; 86140; 86850; 86900; 86901; 86920; 87015; 87040; 87070; 87075; 87086; 87102; 87116; 87205; 88300; 88304; 88311; 89051; 93005; 93971; 96374; 97110-GP; 97162-GP; 97166-GO; 97530-GP; 97535-GO; 99285; A9270-GY; C1751; J0690; J1885; J1940; J2250; J2270; J2405; J2710; J2795; J3010; J3370; P9016

== ENCOUNTER 2016-07-23 16:52 | Inpatient (IN) | payer MEDICARE, OTHER ==
--- NOTE | ~2016-07-23 | PRECARD ---
[facility]&P [address] [address] NAME: NIRU LUNDBERG JR : 41 STATUS : ADM IN PAT#: [id number] AGE: 71 ADM/REG DATE : 07/23/16 MR#: [id number] REPORT SERV DATE: 07/24/16 DICTATED BY: KRISTYN BETANCOURT DATE: 07/24/16 REPORT STATUS : Draft TRANSCRIBED BY: NITISH DATE: 07/24/16 DATE OF ADMISSION: 07/23/2016 HISTORY OF PRESENT ILLNESS: Mr. Niru Lundberg is a 71-year-old gentleman with known ischemic cardiomyopathy, Cardiology was consulted by Dr. Covington because of a troponin level of 0.26. Mr. Lundberg has known ischemic cardiomyopathy. He had prior bypass surgery. His ejection fraction is about 30%. He also has chronic atrial fibrillation. On repeated occasions, he has refused an AICD, oral anticoagulation for atrial fibrillation, and statin therapy. He underwent left knee replacement surgery several weeks ago. He is admitted now with dyspnea and confusion. He described dyspnea for two to three days, but he is uncertain. Again, he underwent knee replacement surgery. He had been admitted to the hospitalist service with a septic left knee. He had undergone antibiotic therapy. He was at [facility]. He developed increasing confusion. He was transferred back to [facility]. PAST MEDICAL HISTORY: 1. Alcoholic cirrhosis. 2. Pancytopenia. 3. Chronic kidney disease. 4. History of GI bleed. 5. Sleep apnea. 6. Chronic back. 7. Depression. 8. Anxiety. SOCIAL HISTORY: Prior tobacco, prior alcohol. MEDICATIONS: 1. Albuterol. 2. Vitamin C. 3. Coreg. 4. Colace. 5. Cardura. 6. Cymbalta. 7. Iron. 8. Hydrocodone. 9. Enulose. 10.Multivitamin. 11.Protonix. 12.Flomax. 13.Vancomycin. 14.Warfarin. H&P [address] [address] NAME: NIRU LUNDBERG JR : 41 STATUS : ADM IN PAT#: [id number] AGE: 71 ADM/REG DATE : 07/23/16 MR#: [id number] REPORT SERV DATE: 07/24/16 DICTATED BY: KRISTYN BETANCOURT DATE: 07/24/16 REPORT STATUS : Draft TRANSCRIBED BY: NITISH DATE: 07/24/16 REVIEW OF SYSTEMS: Difficult to obtain. The patient is confused. PHYSICAL EXAMINATION: VITAL SIGNS: Blood pressure of 115/60, temperature 99.8, heart rate about 100. GENERAL: He appears chronically ill, in no acute distress. HEENT: No sign of xanthelasma. LUNGS: Decreased breath sounds with rare rales. CARDIOVASCULAR: Decreased heart sounds without murmur or rub. ABDOMEN: Protuberant without masses. EXTREMITIES: Mild edema. LABORATORY DATA: White count 3.1, hematocrit 22.9 with an MCV of 93, platelet count 82,000. INR 2.0, BUN is 26, creatinine 1.26, troponin 0.27. BNP 2348. EKG: Atrial fibrillation, probable anterior infarct, possible lateral ischemia. ASSESSMENT: Mr. Lundberg is a 71-year-old gentleman with ischemic cardiomyopathy, atrial fibrillation, has refused an automated implantable cardioverter-defibrillator and chronic anticoagulation for the atrial fibrillation, alcoholic cirrhosis, recent septic left knee, admitted with confusion and dyspnea. I do not think he has had myocardial infarction, he has prior bypass surgery and multiple grafts were known to be occluded, troponin is 0.26. On repeated questioning, he absolutely denies any chest discomfort. The records do not indicate he had any chest pain. He is do not resuscitate status now. We will commence with aggressive diuretics and optimize his medical regimen. MABEL/NITISH Kristyn Betancourt M.D. / [id number] CC: Kwaku Marino M.D.
--- NOTE | ~2016-07-23 | IDS ---
Interim Discharge Summary [facility] [address] [place]. [address] NAME: NIRU LUNDBERG JR : 41 STATUS : ADM IN [facility]#: [id number] AGE: 71 ADM/REG DATE : 07/23/16 MR#: [id number] REPORT SERV DATE: 07/27/16 DICTATED BY: NATY STEPHENSON DATE: 07/27/16 REPORT STATUS : Draft TRANSCRIBED BY: MODL DATE: 07/27/16 ADMISSION DATE: 07/23/2016 DISCHARGE DATE: ADDENDUM: The patient had a report of acute urine retention of 450 mL on 07/17/2016, after his knee surgery. He has had a Montanez catheter since then. It would be worth trying a voiding trial once his INR is not significantly elevated. If his INR is significantly elevated and a catheter is removed and it has to be replaced, he has a higher chance for significant bleeding. ETHAN/NITISH Naty Stephenson M.D. / [id number] CC: Kwaku Hughes M.D.
--- NOTE | ~2016-07-23 | DS ---
Discharge Summary [facility] [address] [place]. [address] NAME: NIRU LUNDBERG JR : 41 STATUS : DIS IN PAT#: [id number] AGE: 71 ADM/REG DATE : 07/23/16 MR#: [id number] REPORT SERV DATE: 08/02/16 DICTATED BY: MAYI MEDINA DATE: 08/01/16 REPORT STATUS : Draft TRANSCRIBED BY: MODShayne DATE: 08/01/16 ADMISSION DATE: 07/23/2016 DISCHARGE DATE: 08/01/2016 Date of transfer to inpatient rehab/correction facility is 08/01/2016. CONDITION ON TRANSFER: Stable. CODE STATUS: Code status on this patient is DNR status. DIAGNOSES ON DISCHARGE: 1. Acute on chronic systolic congestive heart failure - resolved. 2. Nonsustained ventricular tachycardia and implantable cardioverter defibrillator was refused by the patient, but this has also resolved. 3. Alcoholic cirrhosis of the liver with pancytopenia, which is chronic. 4. Chronic hepatic encephalopathy. 5. Chronic atrial fibrillation for which the patient does need anticoagulation with Coumadin. Risk of bleeding, however, is high because his platelet counts are also low and the patient does have cirrhosis, but at the same time, the patient also has a high risk for strokes also because of the patient being in chronic atrial fibrillation. 6. The patient is also bed-bound, so he does need Coumadin. 7. Recent septic arthritis of the left knee, culture negative, status post left knee total resection and cement block placement by Dr. Gatica on 07/16/2016 for which the patient's left knee is immobilized with orthotics. 8. History of non-Hodgkin's lymphoma, which is stable. 9. Urinary retention which has been ongoing since 07/17/2016, and now, I think this will be chronic urinary retention - at least for now, the patient will continue to be on Montanez catheter because if the Montanez catheter is removed and has to be reinserted, the risk of bleeding is high because of the patient being on Coumadin for anticoagulation and also with low platelets. Hence, at this time, I would like to leave the Montanez catheter in for now at least. 10.Stage III chronic kidney disease, which is stable. 11.Chronic anticoagulation status with Coumadin as the patient has chronic atrial fibrillation and is not very mobile at this time. BRIEF HOSPITAL COURSE: Please refer to intermittent discharge summary dictated by Dr. Stephenson all the way until 07/27/2016. I took over this patient's care on 07/28/2016. For the last three days that I have had the patient, he continues to improve and continues to do well. On the day of discharge, actually, he was working well with physical therapy and he cooperated with them to be able to be moved out of bed on to the chair. The patient's mental status also has improved even though some chronic confusion from chronic hepatic encephalopathy persists. His pancytopenia is also chronic and all his blood count stayed typically chronically low. His INR on the day of discharge is 1.8, but his Coumadin will be adjusted to keep his INR between 2 and 3 as he does have chronic atrial fibrillation and definitely is at risk for Discharge Summary [address] [place]. [address] NAME: NIRU LUNDBERG : 41 STATUS : DIS IN PAT#: [id number] AGE: 71 ADM/REG DATE : 07/23/16 MR#: [id number] REPORT SERV DATE: 08/02/16 DICTATED BY: MAYI MEDINA DATE: 08/01/16 REPORT STATUS : Draft TRANSCRIBED BY: NITISH DATE: 08/01/16 DVT, PE, and also at risk for cardioembolic stroke, all three. The patient is hence being sent to inpatient rehab/SNF for further recovery, so he can get physical therapy and occupational therapy for longer. In addition to this, for the patient's septic arthritis of the knee, Infectious Disease has been consulted and their recommendation is that he stay on IV vancomycin through 08/25/2016. So, this will be accomplished also while he is in an inpatient setting. The most recent labs that I have on this patient include the following: On 08/01/2016, his CBC shows a WBC count of 1.7, hemoglobin 7.2, hematocrit 21.7, and platelet count of 64. INR is 1.8 as mentioned before. Electrolyte profile shows sodium of 139, potassium of 4.2, BUN is 32, and creatinine is 1.5, which is pretty much his baseline. Blood cultures have come back with no growth at four days at this time. We also repeated an x-ray of the left knee and this was done on 07/30/2016, and on this day, x-ray of the left knee shows status post removal of total left knee arthroplasty and surgical hardware with placement of bone cement with near anatomic alignment of the left knee joint. No evidence of any infection any longer is noted. The patient continues to remain immobilized with orthotic device for the left knee. He will need this device for several weeks per Dr. Gatica. Medications that he will be sent to inpatient rehab/SNF, the medications are as follows: Aldactone 25 mg once a day; aspirin 81 mg once a day; Bumex 1 mg p.o. b.i.d.; Cardura 4 mg once at bedtime; Colace 100 mg p.o. b.i.d.; Coreg 25 mg p.o. b.i.d.; Coumadin low dose and Coumadin will be adjusted to keep INR between 2 and 3, Coumadin sliding scale; Cymbalta 30 mg once a day; Flomax 0.4 mg once at bedtime; folic acid 1 mg once a day; lactulose 30 mL p.o. twice a day; Protonix 40 mg p.o. at bedtime; Theragran tablet one tablet p.o. daily; and IV vancomycin to be given all the way through 08/25/2016 per ID recommendation. Hence, this patient is being discharged in stable condition and I have spent about 35 minutes in coordinating discharge care of this patient including [id number] encounter and summarizing this discharge. DICTATED BY: Kwaku Nelson/NITISH Mayi Medina M.D. / [id number] CC: Kwaku Nelson M.D.
--- NOTE | ~2016-07-23 | IDS ---
Interim Discharge Summary [facility] [address] [place]. [address] NAME: NIRU LUNDBERG JR : 41 STATUS : ADM IN [facility]#: [id number] AGE: 71 ADM/REG DATE : 07/23/16 MR#: [id number] REPORT SERV DATE: 07/27/16 DICTATED BY: NATY STEPHENSON DATE: 07/27/16 REPORT STATUS : Draft TRANSCRIBED BY: MODL DATE: 07/27/16 ADMISSION DATE: 07/23/2016 DISCHARGE DATE: BENEFITS ADVISOR: Dr. Jesus Betancourt, Cardiology. PROBLEM LIST: 1. Acute on chronic systolic congestive heart failure with previous coronary bypass in 2000. 2. Nonsustained ventricular tachycardia in a gentleman who refuses ICD. 3. Alcoholic cirrhosis with pancytopenia. 4. Chronic atrial fibrillation. 5. Recent septic arthritis, left knee. Culture negative, status post left total knee resection and cement block placement on 07/16/2016, Dr. Gatica. 6. Obstructive sleep apnea on CPAP. 7. History of non-Hodgkin's lymphoma, left parotid and right forehead. 8. Postoperative acute urinary retention on 07/17/2016. 9. Chronic pain. 10.Stage 3 chronic kidney disease. 11.Elevated INR with Coumadin. HISTORY: The patient was here on 07/11/2016 through 07/20/2016, with septic left knee, seen by Infectious Disease, Dr. Camara and Ortho Dr. Gatica. He had left total knee resection with cement block placement and empiric antibiotics with cultures negative. He was discharged to [facility]. He was sent back on 07/23/2016, with shortness of breath, and report of confusion, because of this he was referred to our team for inpatient care. The patient has been seen by his Cardiology Group, they are giving him intravenous diuretics at this time to try to mobilize fluid to improve his heart failure. He has not been diuresing very substantially so far and is still getting IV diuretics. He has had episodes of nonsustained ventricular tachycardia in the past. Cardiology has talked to him about AICD and he have declined. An echocardiogram on 07/26/2016, showed left atrium 5.2 cm. Poor image quality. Left ventricular ejection fraction 34%. Right ventricle was poorly visualized, but had at least mildly decreased systolic function, moderate pulmonary hypertension with mild tricuspid regurgitation, and overall no significant change from the echo on November 2013. The patient is also on aspirin, Coreg, and spironolactone for his heart failure. Currently not on an HARJIT or an ARB per Cardiology. He does have stage 3 chronic kidney disease. The patient has history of alcoholic cirrhosis, and reportedly has been followed by Dr. Robby Barrios of Hepatology. He has pancytopenia. His ammonia level was 16. He is currently alert. He is withdrawn, appears depressed, but not confused at this time. He is using his CPAP during sleep. He does have chronic pain. Interim Discharge Summary [facility] [address] [place]. [address] NAME: NIRU LUNDBERG JR : 41 STATUS : ADM IN [facility]#: [id number] AGE: 71 ADM/REG DATE : 07/23/16 MR#: [id number] REPORT SERV DATE: 07/27/16 DICTATED BY: NATY STEPHENSON DATE: 07/27/16 REPORT STATUS : Draft TRANSCRIBED BY: MODL DATE: 07/27/16 He is in the midst of his vancomycin course for that presumed infection left knee and per Dr. Mendoza's discharge resume, this vancomycin is to be continued through 08/25/2016. Physical Therapy here is still recommending that he go back to skilled level rehab when he is released from the hospital. The patient in the past has been followed by Dr. Caroline Joe of [facility]. His office notes were reviewed. 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 RSJoseph/SHELLIL Naty Stephenson M.D. / [id number] CC: Kwaku Hughes M.D.
--- NOTE | ~2016-07-23 | HP ---
History And Physical [place] [id number] [facility] [place]. [address] NAME: NIRU LUNDBERG JR : 41 STATUS : ADM IN [facility]#: [id number] AGE: 71 ADM/REG DATE : 07/23/16 MR#: [id number] REPORT SERV DATE: 07/24/16 DICTATED BY: LORI SOSA DATE: 07/23/16 REPORT STATUS : Draft TRANSCRIBED BY: NITISH DATE: 07/23/16 DATE OF ADMISSION: 07/23/2016 CHIEF COMPLAINT: Increasing shortness of breath, weakness and intermittent confusion for two days. HISTORY OF PRESENT ILLNESS: This is a very pleasant 71-year-old gentleman. He does have history of cirrhosis, likely secondary to prior alcohol abuse; history of atrial fibrillation, on chronic anticoagulation; chronic systolic CHF as well as the coronary artery disease, status post CABG; history of pancytopenia; history of obstructive sleep apnea, on CPAP at night; history of depression, anxiety, chronic pain; recently admitted to Hospitalist Service with a left septic knee that had undergone surgery and also local antibiotic treatment; also, history of pancytopenia; history of obesity; who on Thursday has been discharged for rehab and IV antibiotics for inpatient rehab. Since he has been transferred to [facility] on Thursday, he started to be increasing shortness of breath, more weak than usual, and his confusion remained intermittent. He said he had some PND intermittent and orthopnea. He has not had any chest pain though. He had a little bit cough. No fever, no sputum production, no other complaints. It is important to note that the patient denies any fever or night sweats, chills. No abdominal pain. No diarrhea. No nausea or vomiting. No constipation. No increased urinary frequency or urgency. No hemoptysis. No hematemesis, melena. No hematochezia. He has been evaluated in the emergency room and after initial evaluation, Hospitalist Service has been asked for admission, further evaluation, and treatment. PAST MEDICAL HISTORY: Significant for coronary artery disease with prior CABG; history of chronic systolic CHF; history of alcoholic cirrhosis; pancytopenia; history of Afib, on Coumadin; chronic kidney disease stage 3 with a creatinine around 1.4 to 1.6; prior history of GI bleed; obstructive sleep apnea, on CPAP; chronic back pain; depression; anxiety; also, recent left knee septic arthritis; history of urinary retention. PAST SURGICAL HISTORY: Includes CABG x4 in 2000, bilateral knee replacement, tonsillectomy in 2005, and recent left knee surgery for left septic knee. SOCIAL HISTORY: He is not a smoker, he quit. No alcohol, he quit 1 year ago. No IV drugs. ALLERGIES: THE PATIENT IS ALLERGIC TO PENICILLIN. MEDICATIONS: At home include: ProAir, ascorbic acid, Coreg, Colace, Cardura, Cymbalta, iron sulfate, [place], lactulose, multivitamin, Protonix, Flomax, vancomycin, and Coumadin. FAMILY HISTORY: Significant for heart disease, DVT, and hypertension. REVIEW OF SYSTEMS: A 14-point review of systems has been obtained and pertinent positive has been listed into the history of present illness. Otherwise, negative except those underlying above currently. History And Physical [address] [id number] NAME: NIRU LUNDBERG : 41 STATUS : ADM IN [facility]#: [id number] AGE: 71 ADM/REG DATE : 07/23/16 MR#: [id number] REPORT SERV DATE: 07/24/16 DICTATED BY: LORI SOSA DATE: 07/23/16 REPORT STATUS : Draft TRANSCRIBED BY: NITISH DATE: 07/23/16 PHYSICAL EXAMINATION: VITAL SIGNS: The patient is afebrile. Blood pressure is 127/58, heart rate 86, respiratory rate 20, and saturating 97% on room air. GENERAL: Chronically ill-appearing gentleman, in no acute distress. He is alert and oriented x3, confused at times, but he follows commands appropriately. HEENT: Shows pupils equal, round, reactive to light. Extraocular movements intact. No JVD. No lymphadenopathy. No thyromegaly appreciated. CHEST: Evaluation shows bilateral air entry. Clear anteroposterior. Few bibasilar crackles. No wheezes, no rhonchi appreciated. CARDIOVASCULAR: Irregularly irregular. S1, S2 positive. No S3, no S4. No murmurs, rubs, or gallops appreciated. ABDOMEN: Soft with positive bowel sounds. Nontender. No guarding. No rebound. EXTREMITIES: No clubbing, no cyanosis. Trace edema. NEUROLOGIC: The patient is alert and oriented x3. Nonfocal. Generalized weak. Follows commands appropriately. Intermittent confused at times. Cranial nerves are intact. LABORATORY DATA: Labs from today include AB, 49, 26, 89 on 21% FiO2. Labs from today include sodium 138, potassium 4.9, chloride 109, CO2 of 26, BUN 26, creatinine 1.26, glucose is 120. Patient's troponin I 0.26. His BNP is 2348.1. His white count 3.1, hemoglobin 7.8, hematocrit 22.9, and platelets are 82. His INR is 7. His UA has been negative. His chest x-ray portable performed in the emergency room shows some interstitial prominence. No acute infiltrate. No pneumothorax or pleural effusion. ASSESSMENT AND PLAN: This is a very pleasant 71-year-old gentleman with 1. Increasing shortness of breath and acute on chronic congestive heart failure exacerbation. 2. Positive troponin I, likely secondary to demand. 3. History of coronary artery disease, status post prior CABG. 4. Chronic atrial fibrillation, on Coumadin anticoagulation. 5. Pancytopenia. 6. History of liver cirrhosis. 7. History of benign prostatic hypertrophy. 8. Recent left knee septic arthritis, status post surgery. 9. Chronic kidney disease stage 3. 10.Obstructive sleep apnea, on CPAP. 11.History of anxiety and depression. 12.Obesity. PLAN: 1. Acute on chronic systolic CHF. We are going to place the patient on oxygen, IV diuretics, strict I's and O's, strict daily weights. We are going to continue his home medication, check on 2D echo, then consult Cardiology [facility] for further recommendation. The patient's senior clerk is Dr. Henley in [place]. 2. Positive troponin I, likely secondary to above. We are going to continue to rule him out for IA by serial cardiac enzymes, serial EKG. Continue beta-tyler. Place him on a baby aspirin. Continue his Coumadin. Check on 2D echo. History And Physical [address] [address] NAME: NIRU LUNDBERG : 41 STATUS : ADM IN [facility]#: [id number] AGE: 71 ADM/REG DATE : 07/23/16 MR#: [id number] REPORT SERV DATE: 07/24/16 DICTATED BY: LORI SOSA DATE: 07/23/16 REPORT STATUS : Draft TRANSCRIBED BY: NITISH DATE: 07/23/16 3. History of atrial fibrillation. Continue his home medications. Continue his Coumadin. Consult pharmacology for Coumadin doses. 4. Pancytopenia with anemia and chronic thrombocytopenia. We are going to transfuse him two units of packed red blood cells with Lasix. Check all anemia studies, guaiac his stools, and follow labs in the morning. 5. Obstructive sleep apnea, on home CPAP. Continue his CPAP at home. 6. History of cirrhosis. We are going to continue his lactulose, check his ammonia level. 7. Recent left knee septic arthritis, status post surgery. We are continuing his vancomycin IV and consult Pharmacology for vancomycin dosing. 8. History of BPH. Continue his home medication. We are going to provide reasonable pain and nausea control as well as continue GI and DVT prophylaxis with Coumadin. That has been discussed extensively with the patient as well as the patient's daughter. All the questions have been answered in full. I have also discussed with the patient's daughter, who is [id number], the patient's medical condition as well as our therapeutical goal. We have also discussed the patient's wishes in case his condition deteriorates and she says she does not want any aggressive measures such as intubation, cardioversion, no chest compression, no medications to treat life-threatening arrhythmia or hemodynamic deterioration according to patient's prior wishes well stated. We will honor patient and family wishes and make the patient do not resuscitate. Further workup and recommendation pending above. Note that the patient is going to be followed by Hospitalist Service. ANTOINE/NITISH Lori Sosa M.D. / [id number] CC: Kwaku Marino M.D.
[2016-07-23 16:49] LABS: BASOPHILS 1.3 %; BASOPHILS ABSOLUTE 0.04 10/3/uL (0.0-0.16); EOSINOPHILS 1.3 %; EOSINOPHILS ABSOLUTE 0.04 10/3/uL (0.0-0.53); HEMATOCRIT 22.9 % (40.0-51.0); HEMOGLOBIN 7.8 g/dL (13.6-17.8); IMMATURE GRANULOCYTES ABSOLUTE 0.06 10/3/uL (0.0-0.11); LYMPHOCYTES 16.6 %; LYMPHOCYTES ABSOLUTE 0.51 10/3/uL (0.67-4.30); MEAN CORPUS HGB CONC 34.1 g/dL (32.0-36.0); MEAN CORPUSCULAR HEMOGLOB 31.6 pg (26.0-34.0); MEAN CORPUSCULAR VOLUME 92.7 fL (80-100); MEAN PLATELET VOLUME 11.7 fL (9.2-13.0); MONOCYTES 24.1 %; MONOCYTES ABSOLUTE 0.74 10/3/uL (0.21-1.20); NEUTROPHILS 54.7 %; NEUTROPHILS ABSOLUTE 1.68 10/3/uL (2.02-8.40); RBC DISTRIBUTION WIDTH 16.2 % (12.0-16.0); RED CELL COUNT 2.47 10/6/uL (4.7-6.1)
[2016-07-23 16:51] LABS: MANUAL DIFF NO %; PLATELET COUNT 82 10/3/uL (150-400); WHITE BLOOD CELLS 3.1 10/3/uL (4.5-10.5)
[~2016-07-23 16:52] MED LIST changes: +8 HOUR650 MG PO; +CLINDA150 PO; +LIPITOR40 PO; +MIRALAX POWDER1 PKT PO; +PERCOCET 10/3251 TAB PO
[2016-07-23 16:57] LABS: INTERNATIONAL NORMAL RATI 1.7 UNITS (-); PARTIAL THROMBO TIME 32.2 SEC (22.5-37.2); PROTIME (NOT ORD) 20.2 SEC (12.0-14.5)
[2016-07-23 16:57] LABS: ALLENS TEST Pos; BE (BASE EXCESS) -2.3 MEQ/L (0 +/- 2.5); HCO3 (ACTUAL BICARBONATE) 19.3 MEQ/L (23-27); INSTRUMENT SERIAL # 8087; PCO2 (CO2 TENSION) 26 MMHG (35-45); PO2 (O2 TENSION) 89 MMHG (79-93); SAMPLE Arterial; pH 7.49 (7.37-7.43)
[2016-07-23 17:04] LABS: CALCIUM, SERUM 7.7 MG/DL (8.5-10.4); CHLORIDE, SERUM 106 MMOL/L (96-112); CO2 (CARBON DIOXIDE) 26 MMOL/L (24-34); CREATININE 1.26 MG/DL (0.70-1.30); GFR AFRICAN AMERICAN 65 ML/MIN (>=60); GFR NON AFRICAN AMERICAN 56 ML/MIN (>=60); GLUCOSE, SERUM 120 MG/DL (60-99); POTASSIUM, SERUM 4.9 MMOL/L (3.5-5.3); SODIUM, SERUM 138 MMOL/L (135-148)
[2016-07-23 17:05] LABS: BUN (BLOOD UREA NITROGEN) 26 MG/DL (6-23); CHEST PAIN PROFILE TAT 0 Hrs 20 Mins; TROPONIN I 0.26 NG/ML (<0.05)
[2016-07-23 17:29] LABS: EOSINOPHILS 2 %; EOSINOPHILS ABSOLUTE (CALC) 0.06 10/3/uL (0.0-0.53); ER DIFF TAT 0 Hrs 44 Mins; LYMPHOCYTES 15 %; LYMPHOCYTES ABSOLUTE (CALC) 0.47 10/3/uL (0.67-4.30); MONOCYTES 15 %; MONOCYTES ABSOLUTE (CALC) 0.47 10/3/uL (0.21-1.20); NEUTROPHILS ABSOLUTE (CALC) 2.11 10/3/uL (2.02-8.40); SEGMENTED NEUTROPHIL (0) 68 %; TOTAL NUCLEATED CELLS 100
[2016-07-23 17:30] LABS: MICROCYTES 1+ (5-10/OIF) (0-5/OIF); PLATELET ESTIMATE DEC (ADEQUATE)
[2016-07-23] MEDS ORDERED: COREG12 PO (18:08)
[2016-07-23] MEDS ORDERED: COREG25 PO (18:08)
[2016-07-23] MEDS ORDERED: COUMADIN4 MG PO (18:09)
[2016-07-23] MEDS ORDERED: CARDU4 PO (18:10)
[2016-07-23] MEDS ORDERED: CYMBALTA30 PO (18:10)
[2016-07-23] MEDS ORDERED: FLOMAX4 PO (18:11)
[2016-07-23] MEDS ORDERED: PROTONIX PO (18:12)
[2016-07-23] MEDS ORDERED: DSS PO (18:12)
[2016-07-23] MEDS ORDERED: MULTIVITAMI1 PO (18:12)
[2016-07-23] MEDS ORDERED: FESO4 PO (18:13)
[2016-07-23] MEDS ORDERED: ENULOSE PO (18:14)
[2016-07-23] MEDS ORDERED: VANCO500 IV (18:15)
[2016-07-23] MEDS ORDERED: VITC500 PO (18:16)
[2016-07-23] MEDS ORDERED: PROAIR HFA INH (18:16)
[2016-07-23] MEDS ORDERED: NORCO1 TA1 PO (18:17)
[2016-07-23 18:49] LABS: ASCORBIC ACID (UR NOT ORDER) NEG (NEG); BILIRUBIN, URINE NEGATIVE (NEG); ER URINALYSIS TAT 0 Hrs 10 Mins; KETONE, URINE NEGATIVE (NEG); LEUKOCYTE ESTERASE(NOT OR SMALL (NEG); NITRITE (URINE) NEG (NEG); WBC (NOT ORDERED) (RFLEX) 4 (0-5)
[2016-07-23 23:26] LABS: PARTIAL THROMBO TIME 38.4 SEC (22.5-37.2)
[2016-07-23 23:59] LABS: ALKALINE PHOSPHATASE 60 U/L (45-117); FERRITIN 670 NG/ML (26-388); FREE T4 1.35 NG/DL (0.76-1.46); IRON BINDING CAPACITY 184 MCG/DL (250-450); IRON, SERUM 73 MCG/DL (35-150); PHOSPHORUS, SERUM 3.8 MG/DL (2.5-4.5); SGOT(AST) 39 U/L (5-40); SGPT(ALT) 29 U/L (5-65); TOTAL PROTEIN 6.2 G/DL (6.0-8.5)
[2016-07-24] LABS: ACETAMINOPHEN LEVEL (TYLENOL) < 2.0 MCG/ML (10.0-20.0); ALBUMIN 2.6 G/DL (3.5-5.0); ALCOHOL < 10 MG/DL (0); DIRECT BILIRUBIN 0.6 MG/DL (0.0-0.4); FOLATE 26.8 NG/ML (>5.2); INDIRECT BILIRUBIN(NOT ORDER) 1.5 MG/DL (0.1-0.9); SALICYLATE < 1.7 MG/DL (-); TOTAL BILIRUBIN 2.1 MG/DL (0-1.2)
[2016-07-24 00:02] LABS: INTERNATIONAL NORMAL RATI 1.9 UNITS (-)
[2016-07-24 01:00] LABS: CPK 56 U/L (0-200)
[2016-07-24 01:01] LABS: CK-MB 1.4 NG/ML; TROPONIN I 0.27 NG/ML (<0.05)
[2016-07-24 06:00] LABS: PROTIME (NOT ORD) 22.6 SEC (12.0-14.5)
[2016-07-24 11:11] LABS: HEMATOCRIT 25.9 % (40.0-51.0); HEMOGLOBIN 8.8 g/dL (13.6-17.8); MANUAL DIFF YES %; MEAN CORPUSCULAR HEMOGLOB 30.9 pg (26.0-34.0); MEAN CORPUSCULAR VOLUME 90.9 fL (80-100); MEAN PLATELET VOLUME 11.7 fL (9.2-13.0); PLATELET COUNT 76 10/3/uL (150-400); RBC DISTRIBUTION WIDTH 16.4 % (12.0-16.0); RED CELL COUNT 2.85 10/6/uL (4.7-6.1); WHITE BLOOD CELLS 2.8 10/3/uL (4.5-10.5)
[2016-07-24 11:38] LABS: A/G RATIO 0.7 (0.7-1.9); ALBUMIN 2.5 G/DL (3.5-5.0); ALKALINE PHOSPHATASE 57 U/L (45-117); BUN (BLOOD UREA NITROGEN) 29 MG/DL (6-23); CALCIUM, SERUM 7.6 MG/DL (8.5-10.4); CHLORIDE, SERUM 102 MMOL/L (96-112); CO2 (CARBON DIOXIDE) 24 MMOL/L (24-34); CPK 65 U/L (0-200); CREATININE 1.54 MG/DL (0.70-1.30); GFR AFRICAN AMERICAN 51 ML/MIN (>=60); GFR NON AFRICAN AMERICAN 44 ML/MIN (>=60); GLOBULIN 3.6 G/DL (2.5-4.1); GLUCOSE, SERUM 119 MG/DL (60-99); POTASSIUM, SERUM 4.1 MMOL/L (3.5-5.3); SGOT(AST) 42 U/L (5-40); SGPT(ALT) 32 U/L (5-65); SODIUM, SERUM 135 MMOL/L (135-148); TOTAL BILIRUBIN 2.3 MG/DL (0-1.2); TOTAL PROTEIN 6.1 G/DL (6.0-8.5)
[2016-07-24 11:40] LABS: CK-MB 1.2 NG/ML
[2016-07-24 12:26] LABS: BAND NEUTROPHILS 18 %; BASOPHILS 1 %; BASOPHILS ABSOLUTE (CALC) 0.03 10/3/uL (0.0-0.16); LYMPHOCYTES 6 %; LYMPHOCYTES ABSOLUTE (CALC) 0.17 10/3/uL (0.67-4.30); MONOCYTES 8 %; MONOCYTES ABSOLUTE (CALC) 0.22 10/3/uL (0.21-1.20); NEUTROPHILS ABSOLUTE (CALC) 2.38 10/3/uL (2.02-8.40); SEGMENTED NEUTROPHIL (0) 67 %; TOTAL NUCLEATED CELLS 100
[2016-07-24 12:27] LABS: PLATELET ESTIMATE DEC (ADEQUATE); RBC MORPHOLOGY NORM (NORMAL)
[2016-07-24 18:23] LABS: BUN (BLOOD UREA NITROGEN) 30 MG/DL (6-23); CALCIUM, SERUM 7.7 MG/DL (8.5-10.4); CHLORIDE, SERUM 102 MMOL/L (96-112); CO2 (CARBON DIOXIDE) 25 MMOL/L (24-34); CREATININE 1.64 MG/DL (0.70-1.30); GFR AFRICAN AMERICAN 47 ML/MIN (>=60); GFR NON AFRICAN AMERICAN 41 ML/MIN (>=60); GLUCOSE, SERUM 114 MG/DL (60-99); SODIUM, SERUM 135 MMOL/L (135-148)
[2016-07-25 04:49] LABS: BASOPHILS 1.4 %; BASOPHILS ABSOLUTE 0.04 10/3/uL (0.0-0.16); EOSINOPHILS 1.8 %; EOSINOPHILS ABSOLUTE 0.05 10/3/uL (0.0-0.53); HEMATOCRIT 27.3 % (40.0-51.0); HEMOGLOBIN 9.3 g/dL (13.6-17.8); IMMATURE GRANULOCYTES 1.1 %; IMMATURE GRANULOCYTES ABSOLUTE 0.03 10/3/uL (0.0-0.11); LYMPHOCYTES 19.5 %; LYMPHOCYTES ABSOLUTE 0.55 10/3/uL (0.67-4.30); MEAN CORPUS HGB CONC 34.1 g/dL (32.0-36.0); MEAN CORPUSCULAR HEMOGLOB 31.2 pg (26.0-34.0); MEAN CORPUSCULAR VOLUME 91.6 fL (80-100); MONOCYTES 19.1 %; MONOCYTES ABSOLUTE 0.54 10/3/uL (0.21-1.20); NEUTROPHILS 57.1 %; NEUTROPHILS ABSOLUTE 1.61 10/3/uL (2.02-8.40); PLATELET COUNT 63 10/3/uL (150-400); RBC DISTRIBUTION WIDTH 16.3 % (12.0-16.0); RED CELL COUNT 2.98 10/6/uL (4.7-6.1); WHITE BLOOD CELLS 2.8 10/3/uL (4.5-10.5)
[2016-07-25 04:50] LABS: INTERNATIONAL NORMAL RATI 3.1 UNITS (-)
[2016-07-25 04:53] LABS: MANUAL DIFF NO %
[2016-07-25 04:54] LABS: BUN (BLOOD UREA NITROGEN) 29 MG/DL (6-23); CALCIUM, SERUM 7.9 MG/DL (8.5-10.4); CHLORIDE, SERUM 103 MMOL/L (96-112); CO2 (CARBON DIOXIDE) 26 MMOL/L (24-34); CREATININE 1.58 MG/DL (0.70-1.30); GFR AFRICAN AMERICAN 50 ML/MIN (>=60); GFR NON AFRICAN AMERICAN 43 ML/MIN (>=60); GLUCOSE, SERUM 102 MG/DL (60-99); POTASSIUM, SERUM 4.2 MMOL/L (3.5-5.3); SODIUM, SERUM 137 MMOL/L (135-148)
[2016-07-25 04:58] LABS: PROTIME (NOT ORD) 31.7 SEC (12.0-14.5)
[2016-07-25 05:17] LABS: PLATELET ESTIMATE DEC (ADEQUATE)
[2016-07-26 05:38] LABS: HEMATOCRIT 26.2 % (40.0-51.0); HEMOGLOBIN 8.9 g/dL (13.6-17.8); MEAN CORPUSCULAR VOLUME 91.3 fL (80-100); PLATELET COUNT 58 10/3/uL (150-400); RBC DISTRIBUTION WIDTH 16.6 % (12.0-16.0); RED CELL COUNT 2.87 10/6/uL (4.7-6.1); WHITE BLOOD CELLS 3.7 10/3/uL (4.5-10.5)
[2016-07-26 05:39] LABS: MANUAL DIFF YES %
[2016-07-26 05:44] LABS: INTERNATIONAL NORMAL RATI 4.1 UNITS (-)
[2016-07-26 05:47] LABS: PROTIME (NOT ORD) 39.1 SEC (12.0-14.5)
[2016-07-26 05:53] LABS: A/G RATIO 0.7 (0.7-1.9); ALBUMIN 2.6 G/DL (3.5-5.0); ALKALINE PHOSPHATASE 56 U/L (45-117); C-REACTIVE PROTEIN 47.3 MG/L (<8.0); CALCIUM, SERUM 7.7 MG/DL (8.5-10.4); CHLORIDE, SERUM 102 MMOL/L (96-112); CO2 (CARBON DIOXIDE) 25 MMOL/L (24-34); GFR AFRICAN AMERICAN 42 ML/MIN (>=60); GFR NON AFRICAN AMERICAN 37 ML/MIN (>=60); GLOBULIN 3.8 G/DL (2.5-4.1); POTASSIUM, SERUM 4.6 MMOL/L (3.5-5.3); SGOT(AST) 69 U/L (5-40); SGPT(ALT) 59 U/L (5-65); SODIUM, SERUM 132 MMOL/L (135-148); TOTAL PROTEIN 6.4 G/DL (6.0-8.5)
[2016-07-26 05:55] LABS: BUN (BLOOD UREA NITROGEN) 33 MG/DL (6-23); GLUCOSE, SERUM 128 MG/DL (60-99); TOTAL BILIRUBIN 1.7 MG/DL (0-1.2)
[2016-07-26 06:23] LABS: ANISOCYTOSIS 1+ (5-10/OIF) (0-5/OIF); BAND NEUTROPHILS 2 %; EOSINOPHILS 2 %; EOSINOPHILS ABSOLUTE (CALC) 0.07 10/3/uL (0.0-0.53); IMMATURE GRANS ABSOLUTE (CALC) 0.15 10/3/uL (0.0-0.11); LYMPHOCYTES 8 %; METAMYELOCYTES 4 %; MONOCYTES 7 %; MONOCYTES ABSOLUTE (CALC) 0.26 10/3/uL (0.21-1.20); NEUTROPHILS ABSOLUTE (CALC) 2.92 10/3/uL (2.02-8.40); PLATELET ESTIMATE DEC (ADEQUATE); SEGMENTED NEUTROPHIL (0) 77 %; TOTAL NUCLEATED CELLS 100
[2016-07-26 06:24] LABS: GIANT PLATELET RARE; TEARDROP SHAPED RBCS OCC (0-2/OIF)
[2016-07-26 07:17] LABS: PROCALCITONIN 0.26 ng/mL (<0.5)
[2016-07-26 11:55] LABS: ASCORBIC ACID (UR NOT ORDER) NEG (NEG); BILIRUBIN, URINE NEGATIVE (NEG); KETONE, URINE NEGATIVE (NEG); LEUKOCYTE ESTERASE(NOT OR NEG (NEG); WBC (NOT ORDERED) (RFLEX) 5 (0-5)
[2016-07-27 06:31] LABS: BASOPHILS 1.1 %; BASOPHILS ABSOLUTE 0.03 10/3/uL (0.0-0.16); EOSINOPHILS 0.4 %; EOSINOPHILS ABSOLUTE 0.01 10/3/uL (0.0-0.53); HEMATOCRIT 25.2 % (40.0-51.0); HEMOGLOBIN 8.6 g/dL (13.6-17.8); IMMATURE GRANULOCYTES 2.1 %; IMMATURE GRANULOCYTES ABSOLUTE 0.06 10/3/uL (0.0-0.11); INTERNATIONAL NORMAL RATI 3.9 UNITS (-); LYMPHOCYTES 14.8 %; LYMPHOCYTES ABSOLUTE 0.42 10/3/uL (0.67-4.30); MEAN CORPUS HGB CONC 34.1 g/dL (32.0-36.0); MONOCYTES 19.7 %; MONOCYTES ABSOLUTE 0.56 10/3/uL (0.21-1.20); NEUTROPHILS 61.9 %; NEUTROPHILS ABSOLUTE 1.76 10/3/uL (2.02-8.40); PLATELET COUNT 55 10/3/uL (150-400); PROTIME (NOT ORD) 38.1 SEC (12.0-14.5); RBC DISTRIBUTION WIDTH 16.4 % (12.0-16.0); RED CELL COUNT 2.77 10/6/uL (4.7-6.1); WHITE BLOOD CELLS 2.8 10/3/uL (4.5-10.5)
[2016-07-27 06:32] LABS: MANUAL DIFF NO %
[2016-07-27 06:49] LABS: BUN (BLOOD UREA NITROGEN) 36 MG/DL (6-23); CALCIUM, SERUM 7.8 MG/DL (8.5-10.4); CHLORIDE, SERUM 101 MMOL/L (96-112); CO2 (CARBON DIOXIDE) 23 MMOL/L (24-34); GFR AFRICAN AMERICAN 42 ML/MIN (>=60); GFR NON AFRICAN AMERICAN 37 ML/MIN (>=60); GLUCOSE, SERUM 120 MG/DL (60-99); POTASSIUM, SERUM 4.9 MMOL/L (3.5-5.3); SODIUM, SERUM 131 MMOL/L (135-148)
[2016-07-27 08:05] LABS: PLATELET ESTIMATE DEC (ADEQUATE)
[2016-07-27 08:06] LABS: RBC MORPHOLOGY NORM (NORMAL)
[2016-07-28 05:53] LABS: BASOPHILS 0.4 %; BASOPHILS ABSOLUTE 0.01 10/3/uL (0.0-0.16); EOSINOPHILS 0 %; HEMATOCRIT 24.2 % (40.0-51.0); HEMOGLOBIN 8.2 g/dL (13.6-17.8); IMMATURE GRANULOCYTES 3.2 %; IMMATURE GRANULOCYTES ABSOLUTE 0.08 10/3/uL (0.0-0.11); LYMPHOCYTES 19.8 %; MEAN CORPUS HGB CONC 33.9 g/dL (32.0-36.0); MEAN CORPUSCULAR HEMOGLOB 30.8 pg (26.0-34.0); MONOCYTES ABSOLUTE 0.38 10/3/uL (0.21-1.20); NEUTROPHILS 61.6 %; NEUTROPHILS ABSOLUTE 1.56 10/3/uL (2.02-8.40); PLATELET COUNT 54 10/3/uL (150-400); RBC DISTRIBUTION WIDTH 16.6 % (12.0-16.0); RED CELL COUNT 2.66 10/6/uL (4.7-6.1); WHITE BLOOD CELLS 2.5 10/3/uL (4.5-10.5)
[2016-07-28 05:56] LABS: MANUAL DIFF NO %
[2016-07-28 06:03] LABS: BUN (BLOOD UREA NITROGEN) 38 MG/DL (6-23); CALCIUM, SERUM 7.5 MG/DL (8.5-10.4); CHLORIDE, SERUM 103 MMOL/L (96-112); CO2 (CARBON DIOXIDE) 22 MMOL/L (24-34); CREATININE 1.69 MG/DL (0.70-1.30); GFR AFRICAN AMERICAN 46 ML/MIN (>=60); GFR NON AFRICAN AMERICAN 39 ML/MIN (>=60); GLUCOSE, SERUM 99 MG/DL (60-99); POTASSIUM, SERUM 4.9 MMOL/L (3.5-5.3); SODIUM, SERUM 132 MMOL/L (135-148)
[2016-07-28 06:12] LABS: INTERNATIONAL NORMAL RATI 3.5 UNITS (-); PROTIME (NOT ORD) 34.7 SEC (12.0-14.5)
[2016-07-28 06:33] LABS: PLATELET ESTIMATE DEC (ADEQUATE); POLYCHROMASIA 1+ (2-5/OIF) (0-1/OIF)
[2016-07-28 06:34] LABS: POIKILOCYTOSIS 1+ (5-10/OIF) (0-5/OIF)
[2016-07-29 05:54] LABS: BASOPHILS 1.3 %; BASOPHILS ABSOLUTE 0.03 10/3/uL (0.0-0.16); EOSINOPHILS 0 %; HEMATOCRIT 23.5 % (40.0-51.0); IMMATURE GRANULOCYTES 0.9 %; IMMATURE GRANULOCYTES ABSOLUTE 0.02 10/3/uL (0.0-0.11); LYMPHOCYTES 35.5 %; LYMPHOCYTES ABSOLUTE 0.83 10/3/uL (0.67-4.30); MEAN CORPUSCULAR HEMOGLOB 30.9 pg (26.0-34.0); MEAN CORPUSCULAR VOLUME 90.7 fL (80-100); MONOCYTES 16.7 %; MONOCYTES ABSOLUTE 0.39 10/3/uL (0.21-1.20); NEUTROPHILS 45.6 %; NEUTROPHILS ABSOLUTE 1.07 10/3/uL (2.02-8.40); PLATELET COUNT 59 10/3/uL (150-400); RBC DISTRIBUTION WIDTH 16.6 % (12.0-16.0); RED CELL COUNT 2.59 10/6/uL (4.7-6.1)
[2016-07-29 05:55] LABS: MANUAL DIFF NO %; WHITE BLOOD CELLS 2.3 10/3/uL (4.5-10.5)
[2016-07-29 05:58] LABS: INTERNATIONAL NORMAL RATI 3.2 UNITS (-); PROTIME (NOT ORD) 32.1 SEC (12.0-14.5)
[2016-07-29 06:03] LABS: BUN (BLOOD UREA NITROGEN) 40 MG/DL (6-23); CALCIUM, SERUM 7.5 MG/DL (8.5-10.4); CHLORIDE, SERUM 103 MMOL/L (96-112); CO2 (CARBON DIOXIDE) 23 MMOL/L (24-34); GFR AFRICAN AMERICAN 49 ML/MIN (>=60); GFR NON AFRICAN AMERICAN 42 ML/MIN (>=60); GLUCOSE, SERUM 89 MG/DL (60-99); POTASSIUM, SERUM 5.5 MMOL/L (3.5-5.3); SODIUM, SERUM 133 MMOL/L (135-148)
[2016-07-29 06:17] LABS: ANISOCYTOSIS 1+ (5-10/OIF) (0-5/OIF); PLATELET ESTIMATE DEC (ADEQUATE); POLYCHROMASIA 1+ (2-5/OIF) (0-1/OIF)
[2016-07-30 04:31] LABS: HEMATOCRIT 23.5 % (40.0-51.0); MEAN CORPUSCULAR HEMOGLOB 30.9 pg (26.0-34.0); MEAN CORPUSCULAR VOLUME 90.7 fL (80-100); MEAN PLATELET VOLUME 11.1 fL (9.2-13.0); PLATELET COUNT 60 10/3/uL (150-400); RBC DISTRIBUTION WIDTH 16.5 % (12.0-16.0); RED CELL COUNT 2.59 10/6/uL (4.7-6.1)
[2016-07-30 04:33] LABS: INTERNATIONAL NORMAL RATI 2.5 UNITS (-); MANUAL DIFF YES %; WHITE BLOOD CELLS 1.6 10/3/uL (4.5-10.5)
[2016-07-30 04:40] LABS: CALCIUM, SERUM 7.6 MG/DL (8.5-10.4); CHLORIDE, SERUM 103 MMOL/L (96-112); CO2 (CARBON DIOXIDE) 27 MMOL/L (24-34); GFR AFRICAN AMERICAN 53 ML/MIN (>=60); GFR NON AFRICAN AMERICAN 46 ML/MIN (>=60); SODIUM, SERUM 132 MMOL/L (135-148)
[2016-07-30 04:41] LABS: BUN (BLOOD UREA NITROGEN) 34 MG/DL (6-23); GLUCOSE, SERUM 112 MG/DL (60-99); POTASSIUM, SERUM 4.3 MMOL/L (3.5-5.3)
[2016-07-30 05:07] LABS: BAND NEUTROPHILS 4 %; LYMPHOCYTES 17 %; LYMPHOCYTES ABSOLUTE (CALC) 0.27 10/3/uL (0.67-4.30); MONOCYTES 9 %; MONOCYTES ABSOLUTE (CALC) 0.14 10/3/uL (0.21-1.20); NEUTROPHILS ABSOLUTE (CALC) 1.18 10/3/uL (2.02-8.40); SEGMENTED NEUTROPHIL (0) 70 %; TOTAL NUCLEATED CELLS 100
[2016-07-30 05:08] LABS: ANISOCYTOSIS 1+ (5-10/OIF) (0-5/OIF); ELLIPTOCYTES 1+ (3-10/OIF) (0-2/OIF); PLATELET ESTIMATE DEC (ADEQUATE); SCHISTOCYTES OCC (0-2/OIF)
[2016-07-30 05:09] LABS: SPHEROCYTES OCC (0-2/OIF)
[2016-07-31 05:00] LABS: HEMATOCRIT 23.1 % (40.0-51.0); HEMOGLOBIN 7.9 g/dL (13.6-17.8); MEAN CORPUS HGB CONC 34.2 g/dL (32.0-36.0); MEAN CORPUSCULAR HEMOGLOB 31.1 pg (26.0-34.0); MEAN CORPUSCULAR VOLUME 90.9 fL (80-100); MEAN PLATELET VOLUME 12.4 fL (9.2-13.0); PLATELET COUNT 68 10/3/uL (150-400); RBC DISTRIBUTION WIDTH 16.4 % (12.0-16.0); RED CELL COUNT 2.54 10/6/uL (4.7-6.1)
[2016-07-31 05:02] LABS: MANUAL DIFF YES %; WHITE BLOOD CELLS 1.5 10/3/uL (4.5-10.5)
[2016-07-31 05:08] LABS: INTERNATIONAL NORMAL RATI 2.3 UNITS (-); PROTIME (NOT ORD) 24.9 SEC (12.0-14.5)
[2016-07-31 05:20] LABS: BUN (BLOOD UREA NITROGEN) 31 MG/DL (6-23); CALCIUM, SERUM 7.9 MG/DL (8.5-10.4); CHLORIDE, SERUM 106 MMOL/L (96-112); CO2 (CARBON DIOXIDE) 27 MMOL/L (24-34); CREATININE 1.49 MG/DL (0.70-1.30); GFR AFRICAN AMERICAN 53 ML/MIN (>=60); GFR NON AFRICAN AMERICAN 46 ML/MIN (>=60); GLUCOSE, SERUM 107 MG/DL (60-99); POTASSIUM, SERUM 4.4 MMOL/L (3.5-5.3); SODIUM, SERUM 132 MMOL/L (135-148)
[2016-07-31 07:00] LABS: BAND NEUTROPHILS 8 %; LYMPHOCYTES 37 %; LYMPHOCYTES ABSOLUTE (CALC) 0.56 10/3/uL (0.67-4.30); MONOCYTES 9 %; MONOCYTES ABSOLUTE (CALC) 0.14 10/3/uL (0.21-1.20); NEUTROPHILS ABSOLUTE (CALC) 0.81 10/3/uL (2.02-8.40); PLATELET ESTIMATE DEC (ADEQUATE); POIKILOCYTOSIS 1+ (5-10/OIF) (0-5/OIF); POLYCHROMASIA 1+ (2-5/OIF) (0-1/OIF); SEGMENTED NEUTROPHIL (0) 46 %; TOTAL NUCLEATED CELLS 100
[2016-08-01 04:56] LABS: HEMATOCRIT 21.7 % (40.0-51.0); HEMOGLOBIN 7.2 g/dL (13.6-17.8); MEAN CORPUS HGB CONC 33.2 g/dL (32.0-36.0); MEAN CORPUSCULAR HEMOGLOB 30.3 pg (26.0-34.0); MEAN CORPUSCULAR VOLUME 91.2 fL (80-100); MEAN PLATELET VOLUME 12.5 fL (9.2-13.0); PLATELET COUNT 64 10/3/uL (150-400); RBC DISTRIBUTION WIDTH 16.5 % (12.0-16.0); RED CELL COUNT 2.38 10/6/uL (4.7-6.1)
[2016-08-01 04:58] LABS: MANUAL DIFF YES %; WHITE BLOOD CELLS 1.7 10/3/uL (4.5-10.5)
[2016-08-01 05:01] LABS: INTERNATIONAL NORMAL RATI 1.8 UNITS (-)
[2016-08-01 05:02] LABS: PROTIME (NOT ORD) 20.9 SEC (12.0-14.5)
[2016-08-01 05:06] LABS: BUN (BLOOD UREA NITROGEN) 32 MG/DL (6-23); CHLORIDE, SERUM 105 MMOL/L (96-112); CO2 (CARBON DIOXIDE) 27 MMOL/L (24-34); CREATININE 1.54 MG/DL (0.70-1.30); GFR AFRICAN AMERICAN 51 ML/MIN (>=60); GFR NON AFRICAN AMERICAN 44 ML/MIN (>=60); GLUCOSE, SERUM 120 MG/DL (60-99); POTASSIUM, SERUM 4.2 MMOL/L (3.5-5.3)
[2016-08-01 05:08] LABS: SODIUM, SERUM 139 MMOL/L (135-148)
[2016-08-01 06:18] LABS: BAND NEUTROPHILS 8 %; EOSINOPHILS 1 %; EOSINOPHILS ABSOLUTE (CALC) 0.02 10/3/uL (0.0-0.53); LYMPHOCYTES 36 %; LYMPHOCYTES ABSOLUTE (CALC) 0.61 10/3/uL (0.67-4.30); MONOCYTES 11 %; MONOCYTES ABSOLUTE (CALC) 0.19 10/3/uL (0.21-1.20); NEUTROPHILS ABSOLUTE (CALC) 0.88 10/3/uL (2.02-8.40); PLATELET ESTIMATE DEC (ADEQUATE); RBC MORPHOLOGY NORM (NORMAL); SEGMENTED NEUTROPHIL (0) 44 %; TOTAL NUCLEATED CELLS 100
[2016-09-23] MEDS ORDERED: FOLIC ACID800 MCG PO (12:42)
[2016-09-23] MEDS ORDERED: MULTIPLE VIT PO (12:43)
[2016-09-23] MEDS ORDERED: STERAPRED DS10 MG (12:45)
[2016-09-23] MEDS ORDERED: SPIRO25 PO (12:48)
[2016-09-23] MEDS ORDERED: FLOMAX4 PO (12:48)
[2016-09-23] MEDS ORDERED: BUM1 PO (12:49)
[2016-09-23] MEDS ORDERED: COREG25 PO (12:50)
[2016-09-23] MEDS ORDERED: FERROUS SULF325 M1 PO (12:50)
[2016-09-23] MEDS ORDERED: CONSTULOSE PO (12:52)
[2016-09-23] MEDS ORDERED: KENALOG EX (12:54)
[2016-09-23] MEDS ORDERED: NYS500UDL PO (12:56)
== END 2016-08-01 16:09 | DRG 292 ==
LOC: ER 16:52 → 2SO 19:49
PROVIDERS: Hospitalist; Internal Medicine; Internal Medicine Cardiovascular Disease; Nurse Practitioner
PROC: 30233N1 Transfusion of Nonautologous Red Blood Cells into Peripheral Vein, Percutaneous Approach (ICD-10-PCS; principal; 2016-07-24)
DX: I50.23 Acute on chronic systolic (congestive) heart failure (principal); D61.818 Other pancytopenia; I47.2 Ventricular tachycardia; N18.3 Chronic kidney disease, stage 3 (moderate); K70.30 Alcoholic cirrhosis of liver without ascites; I24.8 Other forms of acute ischemic heart disease; I25.5 Ischemic cardiomyopathy; Z99.81 Dependence on supplemental oxygen; I25.10 Atherosclerotic heart disease of native coronary artery without angina pectoris; K72.10 Chronic hepatic failure without coma; Z66 Do not resuscitate; I48.2 Chronic atrial fibrillation; N40.0 Benign prostatic hyperplasia without lower urinary tract symptoms; K74.60 Unspecified cirrhosis of liver; Z96.652 Presence of left artificial knee joint; G47.33 Obstructive sleep apnea (adult) (pediatric); F32.9 Major depressive disorder, single episode, unspecified; F41.9 Anxiety disorder, unspecified; G89.29 Other chronic pain; M54.9 Dorsalgia, unspecified; Z96.653 Presence of artificial knee joint, bilateral; E66.9 Obesity, unspecified; Z88.0 Allergy status to penicillin; Z95.1 Presence of aortocoronary bypass graft; Z95.810 Presence of automatic (implantable) cardiac defibrillator; Z98.890 Other specified postprocedural states; Z82.49 Family history of ischemic heart disease and other diseases of the circulatory system; Z85.89 Personal history of malignant neoplasm of other organs and systems; Z68.38 Body mass index [BMI] 38.0-38.9, adult
CPT/HCPCS: 36415; 71010; 73560-LT; 80048; 80053; 80076; 80202; 80307; 81001; 82140; 82272; 82550; 82553; 82607; 82728; 82746; 82805; 83036; 83540; 83550; 83605; 83615; 83735; 83880; 84100; 84145; 84439; 84443; 84484; 85025; 85610; 85730; 86140; 86850; 86900; 86901; 86920; 87040; 87086; 93005; 94640; 96374; 97110-GP; 97162-GP; 97165-GO; 97530-GP; 97535-GO; 99285; A9270-GY; C8929; G8978-CM-GP; G8979-CL-GP; G8987-CK-GO; G8988-CJ-GO; J0610; J1940; J3370; P9016; Q9957